=== PATIENT | female | born 1955 | race Caucasian/White ===

== ENCOUNTER 2016-09-28 13:39 | Emergency (ER) | payer OTHER ==
[~2016-09-28] VITALS: Ht 152.4 cm; Wt 89.0 kg
[~2016-09-28 13:39] MED LIST: AMLO-147 PO; ASPI-664 PO; CYCL-319 PO; ESOM40CA PO; HYDR-3498 PO; IBUP-1542 PO; LISI40TA9 PO; MELO7.5O PO; ULT50 PO
[2016-09-28 14:29] VITALS: Ht 152.4 cm; Wt 89.0 kg
--- NOTE | 2016-09-28 16:59 | ERD ---
ER Documentation Chief Complaint Date/Time DATE: 09/28/16 TIME: 16:55 Chief Complaint Pt with B flank and back pain since last night. HPI Patient is a 61-year-old [place] speaking female here with Maltese speaking daughter who presents to the ED for right back pain that radiates to the front. The pain occurred suddenly as she was sitting last night. She states that the pain is a sharp pain that comes and goes. She has not had this pain in the past. She does have a history of back pain but states that this is a different type of pain. The pain is exacerbated with movement. She denies fever, chills , nausea, vomiting or diarrhea. Her last bowel movement was yesterday. She denies history of constipation. She has passed gas today. Unsure if she has had kidney stones in the past. She denies a change in appetite. She has not taken anything for her pain. She denies chest pain, cough, shortness of breath or difficulty breathing. She denies headache or dizziness. She does have a history of hypertension and takes her medication at night. Patient denies leg pain, swelling. She denies chest pain. She denies recent travel. ROS All systems reviewed and are negative except as per history of present illness. Medications Home Meds Active Scripts Hydrocodone/Acetaminophen ([place] 5-325 Tablet) 1 Each Tablet, 1 TAB PO Q6H Y for PAIN, #7 TAB Prov:ALEJANDRA DAVIES PA-C 09/28/16 Cephalexin* (Keflex*) 500 Mg Capsule, 500 MG PO QID for 5 Days, CAP Prov:ALEJANDRA DAVIES PA-C 09/28/16 Cyclobenzaprine Hcl* (Cyclobenzaprine Hcl*) 10 Mg Tablet, 10 MG PO TID, #15 TAB Prov:MARLENY GRAFF NP 05/11/16 Ibuprofen* (Motrin*) 600 Mg Tab, 600 MG PO Q6H Y for PAIN AND OR ELEVATED TEMP, #30 TAB Prov:MARLEYN GRAFF NP 05/11/16 Hydrocodone Bit-Acetaminophen* ([place]*) 5-325 Mg Tab, 1 TAB PO Q6 Y for PAIN, # 20 TAB Prov:MARLENY GRAFF NP 05/11/16 Cyclobenzaprine Hcl* (Cyclobenzaprine Hcl*) 10 Mg Tablet, 5 MG PO TID, #20 TAB Prov:BERNARDA ANDRADE MD 09/23/15 Hydrocodone Bit-Acetaminophen* ([place]*) 5-325 Mg Tab, 1 TAB PO Q6 Y for PAIN, # 20 TAB Prov:BERNARDA ANDRADE MD 09/23/15 Ibuprofen* (Ibuprofen*) 600 Mg Tablet, 600 MG PO Q6 for PAIN, #30 TAB Prov:CADEN MONIQUE 08/06/15 Reported Medications Lisinopril* (Lisinopril*) 40 Mg Tablet, 40 MG PO DAILY, TAB 08/03/15 Meloxicam* (Meloxicam*) 7.5 Mg/5 Ml Oral.susp, 15 MG PO DAILY, ML 08/03/15 Amlodipine Besylate* (Amlodipine Besylate*) 10 Mg Tablet, 10 MG PO DAILY, TAB 08/03/15 Esomeprazole Mag Trihydrate (Nexium) 40 Mg Capsule.dr, 40 MG PO DAILY, CAP 08/03/15 Tramadol HCl (Tramadol HCl) 50 Mg Tab, 50 MG PO BID, TAB 11/27/14 Aspirin* (Aspirin* EC) 81 Mg Tablet.dr, 81 MG PO DAILY, TAB 11/27/14 Allergies Allergies: Coded Allergies: No Known Drug Allergies (Unverified Allergy, Unknown, 09/23/15) PMhx/Soc History of Surgery: Yes (cholecystectomy, gynecology surgery) Anesthesia Reaction: No Hx Neurological Disorder: No Hx Respiratory Disorders: No Hx Cardiac Disorders: Yes (HTN) Hx Psychiatric Problems: No Hx Miscellaneous Medical Probl: No Hx Alcohol Use: No Hx Substance Use: No Hx Tobacco Use: No FmHx Family History: No coronary disease, No diabetes, No other Physical Exam Vitals Vital Signs Date Time Temp Pulse Resp B/P Pulse Ox O2 Delivery O2 Flow Rate FiO2 09/28/16 18:48 68 148/78 96 09/28/16 14:29 97.9 82 18 172/78 77 Physical Exam GENERAL: Well-developed, well-nourished female. Appears in mild distress HEAD: Normocephalic, atraumatic. EYES: Pupils are equally reactive bilaterally. EOMs grossly intact. No conjunctival erythema. NECK: Supple. No lymphadenopathy or thyromegaly. No meningismus. LUNG: Clear to auscultation bilaterally. No rhonchi, wheezing, rales or coarse breath sounds. HEART: Regular rate and rhythm. No murmurs, rubs or gallops. ABDOMEN: No scars, ecchymosis or rashes noted. Soft, and nondistended. Positive bowel sounds in all four quadrants. No rebound tenderness, no guarding. (-) McBurneys point tenderness. slight right sided CVA tenderness. right sided tenderness BACK: No midline tenderness. Extremities: Equal pulses bilaterally. No peripheral clubbing, cyanosis or edema. No unilateral leg swelling. NEUROLOGIC: Alert and oriented. Moving all four extremities. 5/5 strength in all extremities. Normal speech. Steady gait. Cranial nerves II through XII intact SKIN: Normal color. Warm and dry. No rashes or lesions. Capillary refill < 2 seconds Result Diagram: 09/28/16 1705 09/28/16 1705 Results 24 hrs Laboratory Tests Test 09/28/16 17:05 Alanine Aminotransferase (ALT/SGPT) 38IU/L Albumin 4.5g/dl Albumin/Globulin Ratio 1.07 Alkaline Phosphatase 71IU/L Anion Gap 17 Aspartate Amino Transf (AST/SGOT) 30IU/L Basophils # 0.010^3/ul Basophils % 0.3% Blood Urea Nitrogen 15mg/dl Calcium Level 9.4mg/dl Carbon Dioxide Level 30mmol/L Chloride Level 104mmol/L Creatinine 0.54mg/dl Direct Bilirubin 0.00mg/dl Eosinophils # 0.110^3/ul Eosinophils % 1.2% Globulin 4.20g/dl Glucose Level 93mg/dl Hematocrit 40.9% Hemoglobin 13.7g/dl Indirect Bilirubin 0.4mg/dl Lipase 95U/L Lymphocytes # 2.110^3/ul Lymphocytes % 24.0% Mean Corpuscular Hemoglobin 29.3pg Mean Corpuscular Hemoglobin Concent 33.5g/dl Mean Corpuscular Volume 87.5fl Mean Platelet Volume 9.1fl Monocytes # 0.710^3/ul Monocytes % 7.6% Neutrophils # 6.010^3/ul Neutrophils % 66.9% Nucleated Red Blood Cells # 0.010^3/ul Nucleated Red Blood Cells % 0.0/100WBC Platelet Count 12739^3/UL Potassium Level 4.1mmol/L Red Blood Count 4.6810^6/ul Red Cell Distribution Width 13.3% Sodium Level 147mmol/L Total Bilirubin 0.4mg/dl Total Protein 8.7g/dl Urine Bilirubin NEGATIVE Urine Clarity CLEAR Urine Color LT. YELLOW Urine Glucose NEGATIVE% Urine Hemoglobin NEGATIVE Urine Ketones NEGATIVE Urine Leukocyte Esterase 1+ Urine Microscopic RBC NONE SEEN/HPF Urine Microscopic WBC 5-10/HPF Urine Nitrite NEGATIVE Urine Specific [place] 1.020 Urine Squamous Epithelial Cells RARE Urine Total Protein NEGATIVE Urine Urobilinogen 0.2 E.U./dL Urine pH 6.0 White Blood Count 8.910^3/ul Current Medications Medications (Trade) Dose Ordered Sig/Mita Route PRN Reason Start Time Stop Time Status Last Admin Dose Admin Acetaminophen/ Hydrocodone Bitart ([place] (5/325)) 1 tab ONCE ONCE PO 09/28/16 17:00 09/28/16 17:01 DC 09/28/16 17:06 Procedures/MDM ER COURSE: I kept the patient and/or family informed of laboratory and diagnostic imaging results throughout the emergency room course. EKG, MONITORS, & DIAGNOSTIC IMAGING: [place] [address] Radiology Main Line: [phone] DIAGNOSTIC IMAGING REPORT Patient: BRIAN MARKHAM : 1955 Age: 61 Sex: F [id number] DOS: 09/28/16 1643 Ordering MD: ALEJANDRA DAVIES PA-C Location: [facility] Room/Bed: PROCEDURE: CT Abdomen and Pelvis without contrast. CLINICAL INDICATION: Abdominal pain TECHNIQUE: CT scan of the abdomen and pelvis was performed on a multidetector high-resolution CT scanner without intravenous contrast. Coronal and sagittal reformatted images were obtained from the axial source images. Images were reviewed on a high-resolution PACS workstation. The total exam CTDI equals 22mGy and the total exam DLP equals 1214mGy-cm. COMPARISON: None. FINDINGS: Evaluation of the solid organs is limited given the lack of intravenous contrast administration. Bibasilar atelectasis and scarring. Right hilar calcified lymph node. Intra and extrahepatic pneumobilia may be due to prior sphincterotomy. The gallbladder is absent. The pancreas, spleen and adrenals are unremarkable. No hydronephrosis. No renal or ureteral stone. No bowel obstruction. Blind endeing tubular structure from the cecum may represent a normal-caliber appendix. No focal inflammation in the right lower quadrant. Mild inflammatory stranding at the mesenteric root. No significant retroperitoneal lymphadenopathy, ascites or evidence of pneumoperitoneum. Aortoiliac atherosclerosis. Grade II anterolisthesis of L5-S1 due to bilateral pars defects. There is severe disk space narrowing at this level with severe bilateral foraminal stenosis. IMPRESSION: No renal or ureteral stone Mild inflammatory stranding at the mesenteric root is nonspecific but can be seen with mesenteric panniculitis. Alternatively, this can also be seen with chronic infiltrative processes of the mesentery. No evidence of appendicitis or bowel obstruction. Grade II anterolisthesis of L5-S1 due to bilateral pars defects. There is severe disk space narrowing at this level with severe bilateral foraminal stenosis. Intra and extrahepatic pneumobilia may be due to prior sphincterotomy. The gallbladder is absent. RPTAT: AA .Jose Bernabe MD, MD Date Time Electronically viewed and signed by .Jose Bernabe MD, MD on 09/28/2016 18:09 .T/ CC: ALEJANDRA DAVIES PA-C [place] [address] Rad[facility] Main Line: [phone] DIAGNOSTIC IMAGING REPORT Patient: BRIAN MARKHAM : 1955 Age: 61 Sex: F MR #: [id number] DOS: 09/28/16 1643 Ordering MD: ALEJANDRA DAVIES PA-C Location: [facility] Room/Bed: PROCEDURE: XR Chest. CLINICAL INDICATION: Shortness of breath. TECHNIQUE: Single frontal view. COMPARISON: 09/23/2015. FINDINGS: There is mild right basilar atelectasis. The lungs are otherwise clear. The heart size is normal. There is no pleural effusion. There is no pneumothorax. IMPRESSION: 1. Mild right basilar atelectasis. 2. Otherwise normal chest x-ray. RPTAT: QQ .Chidi Olivera MD, Date Time Electronically viewed and signed by .Chidi Olivera MD, MD on 09/28/2016 17:27 .R/ CC: ALEJANDRA DAVIES PALesia PROCEDURES: [place]. Patient tolerated medication well with no adverse reaction. Patient seen improvement in symptoms LAB INTERPRETATION: CBC showed no evidence of systemic infection or severe anemia. CMP showed no evidence of electrolyte abnormalities, severe acidosis, alkalosis , renal failure, or liver disease. Lipase showed no evidence of acute pancreatitis. UA showed 1+ leukocytes, no hematuria. MEDICAL DECISION MAKING: I consulted with Dr. yañez regarding this patient. This is a 61-year-old female who presents with right-sided pain. Vital signs were reviewed. Patient is afebrile. Patient is not hypoxic. Patient has a UTI. Low suspicion for ovarian torsion, PID, tuboovarian abscess, ectopic , bowel obstruction , pyelonephritis, appendicitis. Low suspicion for ACS, AAA, perforated ulcer, bowel obstruction, cholecystitis, choledocholithiasis, cholangitis, pancreatitis , hepatic abscess, appendicitis, diverticulitis. She also has a history of back pain and her side pain could also be related to a musculoskeletal pain. Low suspicion for dislocation, fracture, septic joint, compartment syndrome, osteomyelitis, cellulitis, avascular necrosis, neurological injury, vascular injury, tendon laceration. However I do not think a CT scan of her back is warranted at this time. She is scheduled for surgery for her back in 2 weeks. I have low suspicion for PE or any cardiac emergency as patient is not tachycardic, blood pressure is within normal limits and she does not have leg pain or swelling. Patient has a low PERC criteria. I have low suspicion for hypertensive urgency or emergency or endorgan damage. Low suspicion for intracranial hemorrhage, meningitis, intracranial mass, concussion, temporal arteritis, stroke, elevated intracranial pressure, seizure. DISCHARGE: At this time, patient is stable for discharge and outpatient management with no new complaints during the ER course. Patient was sent home with Naomy Tomas. Patient will be discharged home with instructions to recheck for new or worsening symptoms such as fever, nausea, weakness, LOC and to follow up with primary care in the next 1-2 days. Patient was advised to return to the ER for any new or worsening symptoms. Plan was discussed and patient and/or family understands and agrees. Home instructions were given. Departure Diagnosis: Primary Impression: Back pain Back pain location: back pain in other location Chronicity: chronic Qualified Code: M54.9 - Other chronic back pain Condition: Stable Additional Instructions: Call your primary care doctor TOMORROW for an appointment during the next 1-2 days.See the doctor sooner or return here if your condition worsens before your appointment time. ALEJANDRA DAVIES PA-C Sep 28, 2016 16:59 ALEJANDRA DAVIES PA-C Sep 28, 2016 16:59
[2016-09-28] MEDS ORDERED: HYDROCODONE/APAP (5/325) TAB PO ONE (17:00)
--- NOTE | 2016-09-28 17:27 | RADRPT ---
PROCEDURE: XR Chest. CLINICAL INDICATION: Shortness of breath. TECHNIQUE: Single frontal view. COMPARISON: 09/23/2015. FINDINGS: There is mild right basilar atelectasis. The lungs are otherwise clear. The heart size is normal. There is no pleural effusion. There is no pneumothorax. IMPRESSION: 1. Mild right basilar atelectasis. 2. Otherwise normal chest x-ray. RPTAT: QQ .Chidi Olivera MD, MD Date Time Electronically viewed and signed by .Chidi Olivera MD, MD on 09/28/2016 17:27 .R/
[2016-09-28 17:37] LABS: BASOPHILS % 0.3 % (0.0-2.0); EOSINOPHILS # 0.1 10^3/ul (0.0-0.5); EOSINOPHILS % 1.2 % (0.0-7.0); HEMATOCRIT 40.9 % (37.0-47.0); HEMOGLOBIN 13.7 g/dl (12.0-16.0); LYMPHOCYTES # 2.1 10^3/ul (0.8-2.9); MEAN CORPUSCULAR HEMOGLOBIN 29.3 pg (29.0-33.0); MEAN CORPUSCULAR HGB CONC 33.5 g/dl (32.0-37.0); MEAN CORPUSCULAR VOLUME 87.5 fl (82.0-101.0); MEAN PLATELET VOLUME 9.1 fl (7.4-10.4); MONOCYTE # 0.7 10^3/ul (0.3-0.9); MONOCYTES % 7.6 % (0.0-11.0); NEUTROPHILS % 66.9 % (39.0-77.0); PLATELET COUNT 209 10^3/UL (140-440); RED BLOOD COUNT 4.68 10^6/ul (4.20-5.40); RED CELL DISTRIBUTION WIDTH 13.3 % (11.5-14.5); UNCORRECTED WBC 8.9 10^3/ul (4.8-10.8); WHITE BLOOD COUNT 8.9 10^3/ul (4.8-10.8)
[2016-09-28 17:41] LABS: CONDITION 1
[2016-09-28 17:45] LABS: ADD UMIC YES; URINE BILIRUBIN (Dip) NEGATIVE (NEGATIVE); URINE BLOOD (Dip) NEGATIVE (NEGATIVE); URINE COLOR LT. YELLOW (YELLOW); URINE GLUCOSE (Dip) NEGATIVE (NEGATIVE); URINE KETONES (Dip) NEGATIVE (NEGATIVE); URINE LEUKOCYTE ESTERASE (Dip) 1+ (NEGATIVE); URINE NITRITE (Dip) NEGATIVE (NEGATIVE); URINE TOTAL PROTEIN (Dip) NEGATIVE (NEGATIVE); URINE UROBILINOGEN (Dip) 0.2 E.U./dL (0.1-1.0)
[2016-09-28 17:46] LABS: ALBUMIN 4.5 g/dl (3.3-4.9)
[2016-09-28 17:47] LABS: POTASSIUM 4.1 mmol/L (3.5-5.1)
[2016-09-28 17:49] LABS: BILIRUBIN,INDIRECT 0.4 mg/dl (0-1.1); BILIRUBIN,TOTAL 0.4 mg/dl (0.2-1.3); CREATININE 0.54 mg/dl (0.44-1.00)
[2016-09-28 17:50] LABS: ALBUMIN/GLOBULIN RATIO 1.07; CALCIUM 9.4 mg/dl (8.4-10.2); TOTAL PROTEIN 8.7 g/dl (6.1-8.1)
[2016-09-28 18:05] LABS: SQUAMOUS EPITHELIAL CELL,UR RARE; URINE RBCS NONE SEEN /HPF (0)
--- NOTE | 2016-09-28 18:09 | RADRPT ---
PROCEDURE: CT Abdomen and Pelvis without contrast. CLINICAL INDICATION: Abdominal pain TECHNIQUE: CT scan of the abdomen and pelvis was performed on a multidetector high-resolution CT s canner without intravenous contrast. Coronal and sagittal reformatted images were obtained from the axial source images. Images were reviewed on a high-resolution PACS workstation. The total exam CTD I equals 22mGy and the total exam DLP equals 1214mGy-cm. COMPARISON: None. FINDINGS: Evaluation of the solid organs is limited given the lack of intravenous contrast administration. Bibasilar atelectasis and scarring. Right hilar calcified lymph node. Intra and extrahepatic pneumobilia may be due to prior sphincterotomy. The gallbladder is absent. The pancreas, spleen and adrenals are unremarkable. No hydronephrosis. No renal or ureteral stone. No bowel obstruction. Blind endeing tubular structure from the cecum may represent a normal-caliber appendix. No focal inflammation in the right lower quadrant. Mild inflammatory stranding at the me senteric root. No significant retroperitoneal lymphadenopathy, ascites or evidence of pneumoperitoneum. Aortoiliac atherosclerosis. Grade II anterolisthesis of L5-S1 due to bilateral pars defects. There is severe disk space narrowi ng at this level with severe bilateral foraminal stenosis. IMPRESSION: No renal or ureteral stone Mild inflammatory stranding at the mesenteric root is nonspecific but can be seen with mesenteric pa nniculitis. Alternatively, this can also be seen with chronic infiltrative processes of the mesenter y. No evidence of appendicitis or bowel obstruction. Grade II anterolisthesis of L5-S1 due to bilateral pars defects. There is severe disk space narrowi ng at this level with severe bilateral foraminal stenosis. Intra and extrahepatic pneumobilia may be due to prior sphincterotomy. The gallbladder is absent. RPTAT: AA .Jose Bernabe MD, MD Date Time Electronically viewed and signed by .Jose Bernabe MD, on 09/28/2016 18:09 .T/
[2016-09-28 18:48] VITALS: BP 148/78; PULSE 68
[2016-09-28] MEDS ORDERED: HYDR-906 PO (18:53)
[2016-09-28] MEDS ORDERED: CEPH-443 PO (18:53)
== END 2016-09-28 19:01 | disposition home or self-care (01) ==
LOC: FTE 13:39
DX: M54.9 Dorsalgia, unspecified (principal); R06.02 Shortness of breath; I10 Essential (primary) hypertension; Z79.82 Long term (current) use of aspirin
CPT/HCPCS: 71010; 74176; 80053; 81001; 83690; 85025; Z7610; 36415; 81003

== ENCOUNTER 2016-09-30 00:16 | Inpatient (IN) | payer OTHER ==
[~2016-09-30] VITALS: Ht 154.9 cm; Wt 86.7 kg
[~2016-09-30 00:16] MED LIST changes: +CEPH-443 PO; +HYDR-906 PO
[2016-09-30] MEDS ORDERED: HYDROCODONE/APAP (5/325) TAB PO ONE (01:30)
--- NOTE | 2016-09-30 04:28 | RADRPT ---
PROCEDURE: US Abdomen (right upper quadrant). CLINICAL INDICATION: Right upper quadrant abdominal pain TECHNIQUE: Multiple real-time longitudinal and transverse images of the right upper quadrant of th e abdomen were acquired utilizing a curved array transducer. Images were reviewed on a high-resoluti on PACS workstation. COMPARISON: CT abdomen and pelvis without contrast of 09/28/2016 and right upper quadrant abdomina l ultrasound of 05/12/2015 FINDINGS: The study is suboptimal due to patient body habitus. Hepatic echogenicity is within normal limits. The length of the right lobe of the liver equals 17.1 cm, within normal limits. There is normal hep atopedal flow within the main portal vein. The patient is status post cholecystectomy. The common b ile duct measures 12 mm in maximal dimension which can be seen status post cholecystectomy. Areas o f increased echogenicity are seen in the extrahepatic bile duct thought to likely correspond to pneu mobilia seen on CT. The pancreas is not seen due to bowel gas. No free fluid is identified. The right kidney measures 10.3 cm in length. There is normal echogenicity within the right kidney. There is no perinephric fluid collection. No hydronephrosis, mass, or calculus is seen. IMPRESSION: Status post cholecystectomy. Areas of increased echogenicity seen in the extrahepatic bile duct thou ght to likely correspond to pneumobilia seen on CT. This is also seen on the previous ultrasound of 05/12/2015. Pneumobilia could be secondary to previous sphincterotomy and is also seen on CT of 04/2014. Pancreas not seen. Please see above. RPTAT: HJES .Maurice Collier MD, Date Time Electronically viewed and signed by .Maurice Collier MD, MD on 09/30/2016 04:28 .S/
--- NOTE | 2016-09-30 06:09 | RADRPT ---
PROCEDURE: XR Abdomen. CLINICAL INDICATION: Abdominal pain. TECHNIQUE: 2 frontal views of the abdomen. COMPARISON: None. FINDINGS: The bowel gas pattern is unremarkable. There is no bowel obstruction or free air. There is no orga nomegaly. There is no abnormal calcification. The osseous structures are unremarkable. IMPRESSION: Unremarkable bowel gas pattern. .Jose Francisco Payne MD, MD Date Time Electronically viewed and signed by .Jose Francisco Payne MD, on 09/30/2016 06:09 .T/
--- NOTE | 2016-09-30 14:13 | RADRPT ---
PROCEDURE: MRCP. CLINICAL INDICATION: Pain. Pneumobilia. TECHNIQUE: MRCP was performed on a high field MRI scanner. Patient was examined without contrast. 3-D coronal rotating MIP images of the biliary tree are available for review. COMPARISON: Gallbladder ultrasound 09/30/2016. CT abdomen/pelvis 09/28/2016. FINDINGS: The gallbladder is surgically absent. Mild central intrahepatic biliary duct dilatation is present. The common bile duct is dilated measuring as much as 12 mm in greatest diameter. Heterogeneous si gnal intensity is seen throughout the common bile duct, some of which corresponds to pneumobilia. H owever, stones and debris may also be present. In addition, there is a open tract which connects th e proximal common bile duct and the descending portion of the duodenum compatible with a choledochod uodenal fistula. The tract measures approximately 9-10 mm in greatest diameter. Mild diffuse promin ence of the pancreatic duct is observed. The liver and spleen are homogeneous in signal intensity. The pancreas is homogeneous in signal int ensity. The adrenal glands and kidneys are unremarkable. There is no hydronephrosis or perinephric edema. The abdominal aorta is normal in caliber. There is no periaortic / retroperitoneal lymphadenopathy. There is a small hiatal hernia. The stomach is collapsed. There is no ascites. IMPRESSION: Common bile duct dilatation with heterogeneous intraluminal signal intensity, partially attributed t o pneumobilia. Stones, sludge and debris may also be present. Choledochoduodenal fistula. RPTAT: HLST .Julianne Messer MD, Date Time Electronically viewed and signed by .Julianne Messer MD, MD on 09/30/2016 14:13 .T/
[2016-09-30] MEDS ORDERED: morphine 4 MG/ML VIAL IV STA (14:40)
[2016-09-30] MEDS ORDERED: ONDANSETRON 4 MG INJ IV STA (14:40)
--- NOTE | 2016-09-30 15:12 | EN ---
Date/Time of Note Date/Time of Note DATE: 09/30/16 TIME: 15:11 ER Progress Note The patient was endorsed to me pending MRI imaging. IMPRESSION: Common bile duct dilatation with heterogeneous intraluminal signal intensity, partially attributed to pneumobilia. Stones, sludge and debris may also be present. Choledochoduodenal fistula. RPTAT: HLST Dr. Kaba has been re-paged. The patient has persistent pain. She was given morphine. There is some concern for possible choledocholithiasis. It is unclear if the patient had sphincterotomy. No evidence of ascending cholangitis. The patient will be admitted for pain control and possible ERCP. Accepting care team and consultations: I discussed the current laboratory data, diagnostic imaging and emergency care provided. Admitting team: Dr. Farrell Admitting team indication: Insurance directed Consulting services: GI, MAGO Lopez MD Sep 30, 2016 15:12
[2016-09-30 15:24] LABS: BASOPHILS % 0.4 % (0.0-2.0); EOSINOPHILS # 0.1 10^3/ul (0.0-0.5); EOSINOPHILS % 1.5 % (0.0-7.0); HEMATOCRIT 40.9 % (37.0-47.0); HEMOGLOBIN 14.1 g/dl (12.0-16.0); LYMPHOCYTES # 1.9 10^3/ul (0.8-2.9); LYMPHOCYTES % 27.6 % (15.0-51.0); MEAN CORPUSCULAR HEMOGLOBIN 29.6 pg (29.0-33.0); MEAN CORPUSCULAR HGB CONC 34.3 g/dl (32.0-37.0); MEAN CORPUSCULAR VOLUME 86.2 fl (82.0-101.0); MEAN PLATELET VOLUME 8.6 fl (7.4-10.4); MONOCYTE # 0.5 10^3/ul (0.3-0.9); MONOCYTES % 7.8 % (0.0-11.0); NEUTROPHIL # 4.3 10^3/ul (1.6-7.5); NEUTROPHILS % 62.7 % (39.0-77.0); PLATELET COUNT 224 10^3/UL (140-440); RED BLOOD COUNT 4.75 10^6/ul (4.20-5.40); RED CELL DISTRIBUTION WIDTH 13.4 % (11.5-14.5); UNCORRECTED WBC 6.8 10^3/ul (4.8-10.8); WHITE BLOOD COUNT 6.8 10^3/ul (4.8-10.8)
[2016-09-30] MEDS ORDERED: ACETAMINOPHEN 650 MG SUPP PR PRN (15:30)
[2016-09-30] MEDS ORDERED: NACL 0.9% 3 ML SYG IV SCH (15:30)
[2016-09-30] MEDS ORDERED: ONDANSETRON 4 MG INJ IV PRN ×2 (15:30)
[2016-09-30] MEDS ORDERED: BISACODYL 10 MG SUPP PR PRN (15:30)
[2016-09-30] MEDS ORDERED: DOCUSATE SODIUM 100 MG CAP PO PRN (15:30)
[2016-09-30] MEDS ORDERED: HYDROCODONE/APAP (5/325) TAB PO PRN ×2 (15:30)
[2016-09-30] MEDS ORDERED: ACETAMINOPHEN 325 MG TAB PO PRN ×2 (15:30)
[2016-09-30] MEDS ORDERED: morphine 2 MG INJ IV PRN (15:30)
[2016-09-30] MEDS ORDERED: MAGNESIUM HYDROXIDE 30ML CUP PO PRN (15:30)
[2016-09-30 15:31] LABS: CONDITION 1
[2016-09-30 15:32] LABS: ALBUMIN 4.5 g/dl (3.3-4.9); POTASSIUM 4.4 mmol/L (3.5-5.1)
[2016-09-30 15:34] LABS: BILIRUBIN,INDIRECT 0.8 mg/dl (0-1.1); BILIRUBIN,TOTAL 0.8 mg/dl (0.2-1.3); CREATININE 0.53 mg/dl (0.44-1.00); INR 1.03; PROTIME 13.5 Sec (12.2-14.2); PT RATIO 1.1
[2016-09-30 15:35] LABS: ALBUMIN/GLOBULIN RATIO 1.02; CALCIUM 9.7 mg/dl (8.4-10.2); PARTIAL THROMBOPLASTIN TIME 29.8 Sec (25.0-35.0); TOTAL PROTEIN 8.9 g/dl (6.1-8.1)
[2016-09-30] MEDS: SOD CHLORIDE 0.9% 1,000 ML IV SCH (16:21)
[2016-09-30 17:08] VITALS: TEMP 98.6
[2016-09-30 17:32] VITALS: BP 176/81; RESP 18
[2016-09-30 17:42] VITALS: Ht 154.9 cm; Wt 86.7 kg
--- NOTE | 2016-09-30 18:07 | HP ---
DATE OF ADMISSION: 09/30/2016 CHIEF COMPLAINT: Abdominal pain. HISTORY OF PRESENT ILLNESS: This is a 61-year-old female with past medical history of hypertension, spondylosis, arthritis, history of cardiac arrhythmia, symptomatic multinodular goiter, obesity, GE RD, who came to [facility] due to reports of right upper quadrant abdominal pain. According to the patient, she had been having pain in her right upper abdomen for 3 days. She did state she initially went to [facility] 3 days ago and was told that she had a UTI and was sent home on oral antibiotic. She did report that her pain got worse since she got home and as such subsequently went to [facility] today for further evaluation. Upon exami nation, she did have abdominal ultrasound to check gallbladder that did show status post cholecystec humberto and also there is increased echogenicity seen in the extrahepatic bile duct likely correspond t o pneumobilia. She did have further CT of the abdomen for further delineation which did show common bile duct dilation with heterogenous intraluminal signal intensity partially attributed to pneumobi denis as well as stones and sludge and debris suspect to be present. 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 The patient with no leukocytosis. She did remain afebrile. She did report having s ome shortness of breath associated with her pain whenever it would start to sharpen. She denied any chest pain or shortness of breath or nausea, vomiting, or any change in her bowel movements. She d enied any kind of fevers or recent sick contacts. We will evaluate her for the aforementioned issue s. MEDICAL AND SURGICAL HISTORY: 1. Essential hypertension. 2. Diabetes. 3. Multinodular goiter. 4. Spondylosis. 5. Obesity. FAMILY HISTORY: Noncontributory. SOCIAL HISTORY: The patient denies any illicit drug use, cigarette smoking or alcohol consumption. ALLERGIES: NO KNOWN ALLERGIES. REVIEW OF SYSTEMS: A 12-point review of systems obtained and entirely negative except that mentione d in the history of present illness. PHYSICAL EXAMINATION: VITAL SIGNS: Temperature is 98.1, pulse is 76, respiratory rate 18, blood pressure is 185/88 and pu lse ox is 97% on room air. GENERAL: This is a 61-year-old female, appears stated age. Denies any reports of pain at this time . EYES: Pupils equal, round and reactive to light. Anicteric sclerae. NECK: Supple, nontender. No JVD. CARDIOVASCULAR: S1, S2 auscultated, regular rate. PULMONARY: Clear to auscultation bilaterally, no wheezing or rhonchi. ABDOMEN: Soft, nontender at this time. Bowel sounds active. EXTREMITIES: There is noted edema of bilateral lower extremities +1. SKIN: Warm, dry and intact. NEUROLOGIC: Alert and oriented x3. LABORATORY DATA: WBC 6.8, hemoglobin is 14.1, hematocrit 40.9 and platelets are 224. Sodium is 144 , potassium 4.4, BUN is 14, creatinine is 0.53. IMAGIN. Gallbladder ultrasound done on 09/30/2016 did show status post cholecystectomy and areas of incr eased echogenicity seen in extrahepatic bile duct, thought to be likely to correspond to pneumobilia . 2. MRCP done on 09/30/2016 did show common bile duct dilation with heterogeneous intraluminal signa l intensity, partially attributed to pneumobilia. Stones, sludge and debris may also be present. T here was also seen choledochoduodenal fistula. IMPRESSION AND PLAN: 1. Abdominal pain, likely secondary to CBD dilation from pneumobilia and possible stones with rhona dochoduodenal fistula. We will get inside sales account executive to follow. We will continue on IV hydration. We will provide analgesics as needed. Of note, patient with no reported abdominal pain at this ti me. No transaminitis seen. We will follow up. 2. Accelerated hypertension. We will provide antihypertensives and adjust as needed. 3. Obesity. Weight reduction is advised. 4. Spondylosis. Patient reported to be planned for surgery on 10/11/2016 at [facility] by her outside surgeon. We will provide with analgesics as needed. 5. History of symptomatic multinodular goiter status post total thyroidectomy. The patient with no active issues at this time. We will continue to monitor. 7. GERD. We will provide with PPI. ADMISSION PROCESS TIME: 40 minutes. Discussed plan of care with Dr. Blanco. Dictated By: CLAIRE LINO ASSOCIATE PROGRAMMER for MINDA BLANCO MD RR/NTS Conf#: [id number] DID#: [id number]
[2016-09-30 19:44] VITALS: BP 177/80; RESP 19
[2016-09-30] MEDS ORDERED: hydrALAzine 20 MG INJ IV PRN (20:30)
[2016-09-30 21:00] VITALS: BP 155/74; PULSE 71
[2016-09-30] MEDS: AMLODIPINE 10 MG TAB PO SCH (21:00)
[2016-09-30] MEDS: traMADol 50 MG TAB PO SCH ×2 (21:00→21:01)
[2016-09-30] MEDS: LISINOPRIL 20 MG TAB PO SCH (21:00)
[2016-09-30 22:30] VITALS: BP 144/67; PULSE 66
[2016-10-01] MEDS: SOD CHLORIDE 0.9% 1,000 ML IV SCH ×3 (03:51→16:25)
[2016-10-01] MEDS: PANTOPRAZOLE 40 MG INJ IV SCH (06:00)
[2016-10-01] MEDS ORDERED: PANTOPRAZOLE (EC) 40 MG TAB PO SCH (06:00)
[2016-10-01 06:57] LABS: ALBUMIN 3.8 g/dl (3.3-4.9)
[2016-10-01 07:00] LABS: BILIRUBIN,INDIRECT 0.8 mg/dl (0-1.1); BILIRUBIN,TOTAL 0.8 mg/dl (0.2-1.3); CREATININE 0.52 mg/dl (0.44-1.00); TOTAL PROTEIN 7.6 g/dl (6.1-8.1)
[2016-10-01 07:01] LABS: CALCIUM 8.9 mg/dl (8.4-10.2); MAGNESIUM 1.9 mg/dl (1.7-2.5); PHOSPHORUS 4.5 mg/dl (2.5-4.9)
[2016-10-01 07:02] LABS: CHOL/HDL RATIO 4.1 RATIO
[2016-10-01 07:05] LABS: T3 UPTAKE 31.3 % (23.5-40.5)
[2016-10-01 07:33] LABS: THYROID STIMULATING HORMONE 3.41 MIU/L (0.465-4.680)
[2016-10-01 07:49] VITALS: BP 117/60; RESP 16
[2016-10-01] MEDS: traMADol 50 MG TAB PO SCH ×2 (09:00→21:16)
[2016-10-01] MEDS ORDERED: LISINOPRIL 20 MG TAB PO SCH (09:00)
[2016-10-01] MEDS: LISINOPRIL 20 MG TAB PO SCH (09:00)
[2016-10-01] MEDS: AMLODIPINE 10 MG TAB PO SCH (09:00)
[2016-10-01] MEDS ORDERED: AMLODIPINE 10 MG TAB PO SCH (09:00)
[2016-10-01] MEDS: ASPIRIN (EC) 81 MG TAB PO SCH (09:10)
--- NOTE | 2016-10-01 10:37 | CONS ---
Date/Time of Note Date/Time of Note DATE: 10/01/16 TIME: 10:35 Assessment/Plan Assessment/Plan Additional Assessment/Plan Abdominal pain * MRCP notes: * Common bile duct dilatation with heterogeneous intraluminal signal intensity , partially attributed to pneumobilia. Stones, sludge and debris may also be present. * Choledochoduodenal fistula. * ERCP on Monday, patient advised of R/B/A of procedure and is agreeable to proceed via [place] router operator pin * Cardiac clearance for ERCP * Trend labs * IVF hydration * Okay to start clears * Further recommendations depend on clinical course Consultation Date/Type/Reason Admit Date/Time Sep 30, 2016 at 15:10 Type of Consultation: Gastroenterology Reason for Consultation Abdominal pain/abnormal finding on MRCP Hx of Present Illness 61-year-old female with PMH of hypertension, spondylosis, arthritis, history of cardiac arrhythmia, symptomatic multinodular goiter, obesity, GERD, and cholecystectomy 40 years ago, presented to the ED 4 days ago with complaints of intense abdominal right upper quadrant pain. Patient stated that symptoms began abruptly and worsen throughout the day. Patient denies nausea, vomiting, diarrhea, sick contacts, travel outside the [place], tobacco abuse, EtOH abuse, and previous of previous episode. Patient reports cholecystectomy 40 years ago and thyroidectomy July 2015. MRCP indicates: 1. Common bile duct dilatation with heterogeneous intraluminal signal intensity, partially attributed to pneumobilia. Stones, sludge and debris may also be present. 2. Choledochoduodenal fistula. Recommend ERCP, and patient is agreeable to proceed. Advised patient of risks/benefits/alternatives of procedure via [place] router operator pin. Social History Smoking Status: Never smoker Exam/Review of Systems Vital Signs Vitals Vital Signs Date Time Temp Pulse Resp B/P Pulse Ox O2 Delivery O2 Flow Rate FiO2 10/01/16 07:49 98.1 67 16 117/60 91 09/30/16 18:00 Nasal Cannula 2.0 Intake and Output 09/30/16 09/30/16 10/01/16 15:00 23:00 07:00 Intake Total 160 ml 840 ml Output Total 650 ml Balance 160 ml 190 ml Exam Constitutional: alert, obese, oriented, well developed Psych: nl mood/affect Head: atraumatic, normocephalic Eyes: EOMI, nl conjunctiva, nl lids, nl sclera ENMT: nl external ears & nose, nl lips & teeth, nl nasal mucosa & septum Neck: non-tender Respiratory: normal air movement Cardiovascular: regular rate and rhythm Gastrointestinal: soft, tender (Right upper quadrant) Neurological: FOREIGN EXCHANGE DEALER II-XII intact Results Result Diagram: 09/30/16 1510 10/01/16 0455 Results 24 hrs Laboratory Tests Test 09/30/16 15:10 10/01/16 04:55 Activated Partial Thromboplast Time 29.8 Alanine Aminotransferase (ALT/SGPT) 42 40 Albumin 4.5 3.8 Albumin/Globulin Ratio 1.02 1.00 Alkaline Phosphatase 70 57 Anion Gap 17 H 18 H Aspartate Amino Transf (AST/SGOT) 30 34 Basophils # 0.0 Basophils % 0.4 Blood Urea Nitrogen 14 14 Calcium Level 9.7 8.9 Carbon Dioxide Level 29 26 Chloride Level 102 103 Creatinine 0.53 0.52 Direct Bilirubin 0.00 0.00 Eosinophils # 0.1 Eosinophils % 1.5 Globulin 4.40 H 3.80 H Glucose Level 95 106 Hematocrit 40.9 Hemoglobin 14.1 INR International Normalized Ratio 1.03 Indirect Bilirubin 0.8 0.8 Lipase 69 Lymphocytes # 1.9 Lymphocytes % 27.6 Mean Corpuscular Hemoglobin 29.6 Mean Corpuscular Hemoglobin Concent 34.3 Mean Corpuscular Volume 86.2 Mean Platelet Volume 8.6 Monocytes # 0.5 Monocytes % 7.8 Neutrophils # 4.3 Neutrophils % 62.7 Nucleated Red Blood Cells # 0.0 Nucleated Red Blood Cells % 0.0 Platelet Count 224 Potassium Level 4.4 4.0 Prothrombin Time 13.5 Prothrombin Time Ratio 1.1 Red Blood Count 4.75 Red Cell Distribution Width 13.4 Sodium Level 144 143 Total Bilirubin 0.8 0.8 Total Protein 8.9 H 7.6 # White Blood Count 6.8 # Cholesterol Level 152 Cholesterol/HDL Ratio 4.1 Free Thyroxine Index 3.26 HDL Cholesterol 37 Hemoglobin A1c 5.6 LDL Cholesterol, Calculated 102 Magnesium Level 1.9 Phosphorus Level 4.5 Thyroid Stimulating Hormone (TSH) 3.410 Thyroxine (T4) 10.4 Triglycerides Level 66 Triiodothyronine (T3) Uptake 31.3 Medications Medications Current Medications Aspirin (Halfprin) 81 mg DAILY PO Last administered on 10/01/16t 09:10; Admin Dose 81 MG; Start 10/01/16 at 09:00 Tramadol HCl 50 mg 50 mg BID PO ; Start 09/30/16 at 21:00 Sodium Chloride (NS) 1,000 ml @ 80 mls/hr [id number] IV Last administered on 06:00; Admin Dose 80 MLS/HR; Start 09/30/16 at 15:21 Ondansetron HCl (Zofran Inj) 4 mg Q6H PRN IV NAUSEA AND/OR VOMITING; Start 09/30 at 15:30 Acetaminophen (Tylenol Tab) 650 mg Q6H PRN PO PAIN LEVEL 1-3 OR FEVER; Start at 15:30 Acetaminophen (Tylenol Supp) 650 mg Q6H PRN [place] PAIN LEVEL 1-3 OR FEVER; Start 09/30/16 at 15:30 Acetaminophen/ Hydrocodone Bitart ([place] (5/325)) 1 tab Q6H PRN PO MODERATE PAIN LEVEL 4-6; Start 09/30/16 at 15:30 Acetaminophen/ Hydrocodone Bitart ([place] (5/325)) 2 tab Q6H PRN PO SEVERE PAIN LEVEL 7-10; Start 09/30/16 at 15:30 Morphine Sulfate (morphine) 2 mg Q4H PRN IV SEVERE PAIN LEVEL 7-10; Start at 15:30 Docusate Sodium (Colace) 100 mg Q12H PRN PO CONSTIPATION; Start 09/30/16 at 15: 30 Magnesium Hydroxide (Milk Of Mag) 30 ml DAILY PRN PO CONSTIPATION; Start at 15:30 Bisacodyl (Dulcolax Supp) 10 mg DAILY PRN [place] CONSTIPATION; Start 09/30/16 at 15: 30 Pantoprazole (Protonix Iv) 40 mg DAILY@06 IV Last administered on 10/01/16 06: 00; Admin Dose 40 MG; Start 10/01/16 at 06:00 Amlodipine Besylate (Norvasc) 10 mg DAILY PO Last administered on 09/30/16 21: 00; Admin Dose 10 MG; Start 09/30/16 at 20:30 Lisinopril (Zestril) 40 mg DAILY PO Last administered on 09/30/16 21:00; Admin Dose 40 MG; Start 09/30/16 at 20:30 Hydralazine HCl (Apresoline) 10 mg Q4H PRN IV SBP>170; Start 09/30/16 at 20:30 Indomethacin (Indocin Supp) 100 mg ONCE ONCE [place] ; Start 10/03/16 at 10:30; Stop 10/03/16 at 10:31; Status UNV JULIO CESAR DIA MD Oct 01, 2016 10:37 JULIO CESAR DIA MD Oct 01, 2016 10:37
--- NOTE | 2016-10-01 15:31 | PN ---
Date/Time of Note Date/Time of Note DATE: 10/01/16 TIME: 15:25 Assessment/Plan Lines/Catheters IV Catheter Type (from [facility]): Peripheral IV Urinary Cath still in place: No Assessment/Plan Chief Complaint/Hosp Course Assessment and Plan: 1. 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 Desk Interviewer following. Tentative plan for ERCP.. We will continue on IV hydration. We will provide analgesics as needed. 2. Accelerated hypertension. We will provide antihypertensives and adjust as needed. 3. Obesity. Weight reduction is advised. 4. Spondylosis. Patient reported to be planned for surgery on 10/11/2016 at [facility] by her outside surgeon. We will provide with analgesics as needed. 5. History of symptomatic multinodular goiter status post total thyroidectomy. The patient with no active issues at this time. We will continue to monitor. GERD. We will provide with PPI. Disposition and plan: We'll get cardiology clearance prior to ERCP on 2016. We'll follow-up Discussed plan of care with Dr. Blanco Problems: Subjective 24 Hr Interval Summary Free Text/Dictation only reports little pain on right upper abd quadrant Exam/Review of Systems Vital Signs Vitals Vital Signs Date Time Temp Pulse Resp B/P Pulse Ox O2 Delivery O2 Flow Rate FiO2 10/01/16 08:00 Nasal Cannula 2.0 10/01/16 07:49 98.1 67 16 117/60 91 Intake and Output 09/30/16 09/30/16 10/01/16 15:00 23:00 07:00 Intake Total 160 ml 840 ml Output Total 650 ml Balance 160 ml 190 ml Exam General: No acute signs or symptoms of distress Eyes: pupils equal round, Anicteric sclera Neck: Supple nontender, no JVD Cardiac: S1, S2 auscultated, regular rhythm and rate Pulmonary: No coarse rhonchi or breathing auscultated GI: Minimally tender on palpation of right upper quadrant Extremities: Minimal edema bilateral lower extremities +1 Skin: Clean dry and intact Neurologic: Alert to person place and time and situation Results Result Diagram: 09/30/16 1510 10/01/16 2840 Results 24 hrs Laboratory Tests Test 10/01/16 04:55 Alanine Aminotransferase (ALT/SGPT) 40 Albumin 3.8 Albumin/Globulin Ratio 1.00 Alkaline Phosphatase 57 Anion Gap 18 H Aspartate Amino Transf (AST/SGOT) 34 Blood Urea Nitrogen 14 Calcium Level 8.9 Carbon Dioxide Level 26 Chloride Level 103 Cholesterol Level 152 Cholesterol/HDL Ratio 4.1 Creatinine 0.52 Direct Bilirubin 0.00 Free Thyroxine Index 3.26 Globulin 3.80 H Glucose Level 106 HDL Cholesterol 37 Hemoglobin A1c 5.6 Indirect Bilirubin 0.8 LDL Cholesterol, Calculated 102 Magnesium Level 1.9 Phosphorus Level 4.5 Potassium Level 4.0 Sodium Level 143 Thyroid Stimulating Hormone (TSH) 3.410 Thyroxine (T4) 10.4 Total Bilirubin 0.8 Total Protein 7.6 # Triglycerides Level 66 Triiodothyronine (T3) Uptake 31.3 Medications Medications Current Medications Aspirin (Halfprin) 81 mg DAILY PO Last administered on 10/01/16 09:10; Admin Dose 81 MG; Start 10/01/16 at 09:00 Tramadol HCl 50 mg 50 mg BID PO ; Start 09/30/16 at 21:00 Sodium Chloride (NS) 1,000 ml @ 80 mls/hr [id number] IV Last administered on 06:00; Admin Dose 80 MLS/HR; Start 09/30/16 at 15:21 Ondansetron HCl (Zofran Inj) 4 mg Q6H PRN IV NAUSEA AND/OR VOMITING; Start 09/30 at 15:30 Acetaminophen (Tylenol Tab) 650 mg Q6H PRN PO PAIN LEVEL 1-3 OR FEVER; Start at 15:30 Acetaminophen (Tylenol Supp) 650 mg Q6H PRN [place] PAIN LEVEL 1-3 OR FEVER; Start 09/30/16 at 15:30 Acetaminophen/ Hydrocodone Bitart ([place] (5/325)) 1 tab Q6H PRN PO MODERATE PAIN LEVEL 4-6; Start 09/30/16 at 15:30 Acetaminophen/ Hydrocodone Bitart ([place] (5/325)) 2 tab Q6H PRN PO SEVERE PAIN LEVEL 7-10; Start 09/30/16 at 15:30 Morphine Sulfate (morphine) 2 mg Q4H PRN IV SEVERE PAIN LEVEL 7-10; Start at 15:30 Docusate Sodium (Colace) 100 mg Q12H PRN PO CONSTIPATION; Start 09/30/16 at 15: 30 Magnesium Hydroxide (Milk Of Mag) 30 ml DAILY PRN PO CONSTIPATION; Start at 15:30 Bisacodyl (Dulcolax Supp) 10 mg DAILY PRN [place] CONSTIPATION; Start 09/30/16 at 15: 30 Pantoprazole (Protonix Iv) 40 mg DAILY@06 IV Last administered on 10/01/16 06: 00; Admin Dose 40 MG; Start 10/01/16 at 06:00 Amlodipine Besylate (Norvasc) 10 mg DAILY PO Last administered on 09/30/16 21: 00; Admin Dose 10 MG; Start 09/30/16 at 20:30 Lisinopril (Zestril) 40 mg DAILY PO Last administered on 09/30/16 21:00; Admin Dose 40 MG; Start 09/30/16 at 20:30 Hydralazine HCl (Apresoline) 10 mg Q4H PRN IV SBP>170; Start 09/30/16 at 20:30 Indomethacin (Indocin Supp) 100 mg ONCE ONCE [place] ; Start 10/03/16 at 10:30; Stop 10/03/16 at 10:31 CLAIRE LINO Oct 01, 2016 15:31
[2016-10-01 20:25] VITALS: BP 139/62; RESP 18
[2016-10-02] MEDS: SOD CHLORIDE 0.9% 1,000 ML IV SCH ×3 (04:51→22:15)
[2016-10-02 05:51] LABS: POTASSIUM 3.7 mmol/L (3.5-5.1)
[2016-10-02 05:52] LABS: BASOPHILS % 0.5 % (0.0-2.0); EOSINOPHILS # 0.1 10^3/ul (0.0-0.5); EOSINOPHILS % 1.9 % (0.0-7.0); HEMOGLOBIN 12.5 g/dl (12.0-16.0); LYMPHOCYTES # 2.1 10^3/ul (0.8-2.9); LYMPHOCYTES % 40.1 % (15.0-51.0); MEAN CORPUSCULAR HEMOGLOBIN 29.7 pg (29.0-33.0); MEAN CORPUSCULAR HGB CONC 34.7 g/dl (32.0-37.0); MEAN CORPUSCULAR VOLUME 85.5 fl (82.0-101.0); MEAN PLATELET VOLUME 8.8 fl (7.4-10.4); MONOCYTE # 0.4 10^3/ul (0.3-0.9); MONOCYTES % 8.3 % (0.0-11.0); NEUTROPHIL # 2.5 10^3/ul (1.6-7.5); NEUTROPHILS % 49.2 % (39.0-77.0); PLATELET COUNT 205 10^3/UL (140-440); RED BLOOD COUNT 4.21 10^6/ul (4.20-5.40); RED CELL DISTRIBUTION WIDTH 13.1 % (11.5-14.5); UNCORRECTED WBC 5.2 10^3/ul (4.8-10.8); WHITE BLOOD COUNT 5.2 10^3/ul (4.8-10.8)
[2016-10-02 05:54] LABS: CREATININE 0.52 mg/dl (0.44-1.00)
[2016-10-02 05:55] LABS: CALCIUM 8.8 mg/dl (8.4-10.2)
[2016-10-02 06:09] LABS: CONDITION 1
[2016-10-02] MEDS: PANTOPRAZOLE 40 MG INJ IV SCH (06:13)
[2016-10-02 07:53] VITALS: BP 123/58; RESP 16
--- NOTE | 2016-10-02 08:04 | CONS ---
Date/Time of Note Date/Time of Note DATE: 10/02/16 TIME: 08:01 Assessment/Plan Assessment/Plan Additional Assessment/Plan * MRCP notes: * Common bile duct dilatation with heterogeneous intraluminal signal intensity , partially attributed to pneumobilia. Stones, sludge and debris may also be present. * Choledochoduodenal fistula. * ERCP on Monday, patient advised of R/B/A of procedure and is agreeable to proceed via Thai reliability technicians * Cardiac clearance for ERCP * Trend labs * IVF hydration * Okay to start clears * Further recommendations depend on clinical course * Patient seen in collaboration with Dr. Kaab Consultation Date/Type/Reason Admit Date/Time Sep 30, 2016 at 15:10 Initial Consult Date Type of Consultation: Gastroenterology 24 HR Interval Summary Free Text/Dictation Tolerating clears ERCP planned tomorrow Awaiting cardiac clearance for procedure Exam/Review of Systems Vital Signs Vitals Vital Signs Date Time Temp Pulse Resp B/P Pulse Ox O2 Delivery O2 Flow Rate FiO2 10/02/16 07:53 98.4 57 16 123/58 94 10/01/16 08:00 Nasal Cannula 2.0 Intake and Output 10/01/16 10/01/16 10/02/16 15:00 23:00 07:00 Intake Total 1680 ml 930 ml Output Total 400 ml 600 ml Balance 1280 ml 330 ml Exam Constitutional: alert, obese, oriented, well developed Psych: nl mood/affect Head: atraumatic, normocephalic Eyes: EOMI, nl conjunctiva, nl lids, nl sclera ENMT: nl external ears & nose, nl lips & teeth, nl nasal mucosa & septum Neck: non-tender Respiratory: normal air movement Cardiovascular: regular rate and rhythm Gastrointestinal: soft, tender (Right upper quadrant) Neurological: ACID PATROLLER II-XII intact Results Result Diagram: 10/02/16 0435 10/02/16 0435 Results 24 hrs Laboratory Tests Test 10/02/16 04:35 Anion Gap 14 Basophils # 0.0 Basophils % 0.5 Blood Urea Nitrogen 13 Calcium Level 8.8 Carbon Dioxide Level 29 Chloride Level 104 Creatinine 0.52 Eosinophils # 0.1 Eosinophils % 1.9 Glucose Level 86 Hematocrit 36.0 L Hemoglobin 12.5 Lymphocytes # 2.1 Lymphocytes % 40.1 Mean Corpuscular Hemoglobin 29.7 Mean Corpuscular Hemoglobin Concent 34.7 Mean Corpuscular Volume 85.5 Mean Platelet Volume 8.8 Monocytes # 0.4 Monocytes % 8.3 Neutrophils # 2.5 Neutrophils % 49.2 Nucleated Red Blood Cells # 0.0 Nucleated Red Blood Cells % 0.0 Platelet Count 205 Potassium Level 3.7 Red Blood Count 4.21 Red Cell Distribution Width 13.1 Sodium Level 143 White Blood Count 5.2 # Medications Medications Current Medications Aspirin (Halfprin) 81 mg DAILY PO Last administered on 10/01/16 09:10; Admin Dose 81 MG; Start 10/01/16 at 09:00 Tramadol HCl 50 mg 50 mg BID PO Last administered on 10/01/16 21:16; Admin Dose 50 MG; Start 09/30/16 at 21:00 Sodium Chloride (NS) 1,000 ml @ 80 mls/hr [id number] IV Last administered on 04:51; Admin Dose 80 MLS/HR; Start 09/30/16 at 15:21 Ondansetron HCl (Zofran Inj) 4 mg Q6H PRN IV NAUSEA AND/OR VOMITING; Start 09/30 at 15:30 Acetaminophen (Tylenol Tab) 650 mg Q6H PRN PO PAIN LEVEL 1-3 OR FEVER; Start at 15:30 Acetaminophen (Tylenol Supp) 650 mg Q6H PRN [place] PAIN LEVEL 1-3 OR FEVER; Start 09/30/16 at 15:30 Acetaminophen/ Hydrocodone Bitart ([place] (5/325)) 1 tab Q6H PRN PO MODERATE PAIN LEVEL 4-6; Start 09/30/16 at 15:30 Acetaminophen/ Hydrocodone Bitart ([place] (5/325)) 2 tab Q6H PRN PO SEVERE PAIN LEVEL 7-10; Start 09/30/16 at 15:30 Morphine Sulfate (morphine) 2 mg Q4H PRN IV SEVERE PAIN LEVEL 7-10; Start at 15:30 Docusate Sodium (Colace) 100 mg Q12H PRN PO CONSTIPATION; Start 09/30/16 at 15: 30 Magnesium Hydroxide (Milk Of Mag) 30 ml DAILY PRN PO CONSTIPATION; Start at 15:30 Bisacodyl (Dulcolax Supp) 10 mg DAILY PRN [place] CONSTIPATION; Start 09/30/16 at 15: 30 Pantoprazole (Protonix Iv) 40 mg DAILY@06 IV Last administered on 10/02/16 06: 13; Admin Dose 40 MG; Start 10/01/16 at 06:00 Amlodipine Besylate (Norvasc) 10 mg DAILY PO Last administered on 09/30/16 21: 00; Admin Dose 10 MG; Start 09/30/16 at 20:30 Lisinopril (Zestril) 40 mg DAILY PO Last administered on 09/30/16 21:00; Admin Dose 40 MG; Start 09/30/16 at 20:30 Hydralazine HCl (Apresoline) 10 mg Q4H PRN IV SBP>170; Start 09/30/16 at 20:30 Indomethacin (Indocin Supp) 100 mg ONCE ONCE IN ; Start 10/03/16 at 10:30; Stop 10/03/16 at 10:31 LISA GARCIA Oct 02, 2016 08:04
[2016-10-02] MEDS: ASPIRIN (EC) 81 MG TAB PO SCH (08:50)
[2016-10-02] MEDS: AMLODIPINE 10 MG TAB PO SCH (08:51)
[2016-10-02] MEDS: LISINOPRIL 20 MG TAB PO SCH (08:51)
[2016-10-02] MEDS: traMADol 50 MG TAB PO SCH ×2 (08:53→20:29)
--- NOTE | 2016-10-02 11:30 | CONS ---
Date/Time of Note Date/Time of Note DATE: 10/02/16 TIME: 11:21 Assessment/Plan Assessment/Plan Chief Complaint/Hosp Course Pre-operative evaluation: The patient is to undergo a low risk procedure. She does not have cardiac related symptoms and had a stress test and echo a year ago which were normal. No further testing is indicated. Can proceed with ERCP as planned. RUQ pain: ERCP tomorrow DM HTN HL -proceed with ERCP -no further testing -will follow as needed Problems: Consultation Date/Type/Reason Admit Date/Time Sep 30, 2016 at 15:10 Date of Consultation: Oct 02, 2016 Type of Consultation: Cardiology Reason for Consultation Pre-procedure evaluation. Referring Provider: CLAIRE LINO of Present Illness 61 yo F with a h/o DM, HTN, HL, cholecystectomy 40 yrs ago, who presented with RUQ pain. As MRCP showed some abnormalities the plan is for ERCP tomorrow. The patient notes that she only has RUQ pain which is now better. No chest pain with activity, no SOB, orthopnea, PND, edema. She notes that she had a full cardiac eval one year ago including a negative stress test. No h/o LA. per HPI Psychological: nl mood/affect Social History Smoking Status: Never smoker Exam/Review of Systems Vital Signs Vitals Vital Signs Date Time Temp Pulse Resp B/P Pulse Ox O2 Delivery O2 Flow Rate FiO2 10/02/16 07:53 98.4 57 16 123/58 94 10/01/16 08:00 Nasal Cannula 2.0 Intake and Output 10/01/16 10/01/16 10/02/16 14:59 22:59 06:59 Intake Total 1680 ml 930 ml Output Total 400 ml 600 ml Balance 1280 ml 330 ml Exam Constitutional: alert, oriented Psych: no complaints Head: atraumatic, normocephalic Neck: No jvd Respiratory: clear to auscultation, No crackles/rales Cardiovascular: regular rate and rhythm, No systolic murmur Gastrointestinal: non-tender, soft Extremities: normal pulses Neurological: nl mental status, nl speech Skin: No rash or lesions Results Result Diagram: 10/02/16 0435 10/02/16 0435 Results 24 hrs Laboratory Tests Test 10/02/16 04:35 Anion Gap 14 Basophils # 0.0 Basophils % 0.5 Blood Urea Nitrogen 13 CA 19-9 Antigen 5.0 Calcium Level 8.8 Carbon Dioxide Level 29 Chloride Level 104 Creatinine 0.52 Direct Bilirubin 0.00 Eosinophils # 0.1 Eosinophils % 1.9 Glucose Level 86 Hematocrit 36.0 L Hemoglobin 12.5 Lipase 95 Lymphocytes # 2.1 Lymphocytes % 40.1 Mean Corpuscular Hemoglobin 29.7 Mean Corpuscular Hemoglobin Concent 34.7 Mean Corpuscular Volume 85.5 Mean Platelet Volume 8.8 Monocytes # 0.4 Monocytes % 8.3 Neutrophils # 2.5 Neutrophils % 49.2 Nucleated Red Blood Cells # 0.0 Nucleated Red Blood Cells % 0.0 Platelet Count 205 Potassium Level 3.7 Red Blood Count 4.21 Red Cell Distribution Width 13.1 Sodium Level 143 Total Bilirubin 0.0 L White Blood Count 5.2 # Medications Medications Current Medications Aspirin (Halfprin) 81 mg DAILY PO Last administered on 10/02/16 08:50; Admin Dose 81 MG; Start 10/01/16 at 09:00 Tramadol HCl 50 mg 50 mg BID PO Last administered on 10/02/16 08:53; Admin Dose 50 MG; Start 09/30/16 at 21:00 Sodium Chloride (NS) 1,000 ml @ 80 mls/hr [id number] IV Last administered on 04:51; Admin Dose 80 MLS/HR; Start 09/30/16 at 15:21 Ondansetron HCl (Zofran Inj) 4 mg Q6H PRN IV NAUSEA AND/OR VOMITING; Start 09/30 at 15:30 Acetaminophen (Tylenol Tab) 650 mg Q6H PRN PO PAIN LEVEL 1-3 OR FEVER; Start at 15:30 Acetaminophen (Tylenol Supp) 650 mg Q6H PRN [place] PAIN LEVEL 1-3 OR FEVER; Start 09/30/16 at 15:30 Acetaminophen/ Hydrocodone Bitart ([place] (5/325)) 1 tab Q6H PRN PO MODERATE PAIN LEVEL 4-6; Start 09/30/16 at 15:30 Acetaminophen/ Hydrocodone Bitart ([place] (5/325)) 2 tab Q6H PRN PO SEVERE PAIN LEVEL 7-10; Start 09/30/16 at 15:30 Morphine Sulfate (morphine) 2 mg Q4H PRN IV SEVERE PAIN LEVEL 7-10; Start at 15:30 Docusate Sodium (Colace) 100 mg Q12H PRN PO CONSTIPATION; Start 09/30/16 at 15: 30 Magnesium Hydroxide (Milk Of Mag) 30 ml DAILY PRN PO CONSTIPATION; Start at 15:30 Bisacodyl (Dulcolax Supp) 10 mg DAILY PRN [place] CONSTIPATION; Start 09/30/16 at 15: 30 Pantoprazole (Protonix Iv) 40 mg DAILY@06 IV Last administered on 10/02/16 06: 13; Admin Dose 40 MG; Start 10/01/16 at 06:00 Amlodipine Besylate (Norvasc) 10 mg DAILY PO Last administered on 10/02/16 08: 51; Admin Dose 10 MG; Start 09/30/16 at 20:30 Lisinopril (Zestril) 40 mg DAILY PO Last administered on 10/02/16 08:51; Admin Dose 40 MG; Start 09/30/16 at 20:30 Hydralazine HCl (Apresoline) 10 mg Q4H PRN IV SBP>170; Start 09/30/16 at 20:30 Indomethacin (Indocin Supp) 100 mg ONCE ONCE [place] ; Start 10/03/16 at 10:30; Stop 10/03/16 at 10:31 LELIA BEAR Oct 02, 2016 11:29
--- NOTE | 2016-10-02 12:01 | PN ---
Date/Time of Note Date/Time of Note DATE: 10/02/16 TIME: 12:00 Assessment/Plan VTE Prophylaxis VTE Prophylaxis Intervention: SCD's Lines/Catheters IV Catheter Type (from [facility]): Peripheral IV Urinary Cath still in place: No Assessment/Plan Chief Complaint/Hosp Course Assessment and Plan: 1. 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 Supervisor Packing Room following. Tentative plan for ERCP.. We will provide analgesics as needed. 2. Accelerated hypertension. We will provide antihypertensives and adjust as needed. 3. Obesity. Weight reduction is advised. 4. Spondylosis. Patient reported to be planned for surgery on 10/11/2016 at [facility] by her outside surgeon. We will provide with analgesics as needed. 5. History of symptomatic multinodular goiter status post total thyroidectomy. The patient with no active issues at this time. We will continue to monitor. GERD. We will provide with PPI. Disposition and plan: Plan for ERCP 10/03/2016. We'll follow-up. Continue supportive care. Discussed plan of care with Dr. Healy Problems: Subjective 24 Hr Interval Summary Free Text/Dictation Comfortable at this time. No apparent distress Exam/Review of Systems Vital Signs Vitals Vital Signs Date Time Temp Pulse Resp B/P Pulse Ox O2 Delivery O2 Flow Rate FiO2 10/02/16 07:53 98.4 57 16 123/58 94 10/01/16 08:00 Nasal Cannula 2.0 Intake and Output 10/01/16 10/01/16 10/02/16 14:59 22:59 06:59 Intake Total 1680 ml 930 ml Output Total 400 ml 600 ml Balance 1280 ml 330 ml Exam General: No acute signs or symptoms of distress Eyes: pupils equal round, Anicteric sclera Neck: Supple nontender, no JVD Cardiac: S1, S2 auscultated, regular rhythm and rate Pulmonary: No coarse rhonchi or breathing auscultated GI: Abdomen soft nontender nondistended, bowel sounds active Extremities: No edema bilateral lower extremities Skin: Clean dry and intact Neurologic: Alert to person place and time and situation Results Result Diagram: 10/02/16 0435 10/02/16 0435 Results 24 hrs Laboratory Tests Test 10/02/16 04:35 Anion Gap 14 Basophils # 0.0 Basophils % 0.5 Blood Urea Nitrogen 13 CA 19-9 Antigen 5.0 Calcium Level 8.8 Carbon Dioxide Level 29 Chloride Level 104 Creatinine 0.52 Direct Bilirubin 0.00 Eosinophils # 0.1 Eosinophils % 1.9 Glucose Level 86 Hematocrit 36.0 L Hemoglobin 12.5 Lipase 95 Lymphocytes # 2.1 Lymphocytes % 40.1 Mean Corpuscular Hemoglobin 29.7 Mean Corpuscular Hemoglobin Concent 34.7 Mean Corpuscular Volume 85.5 Mean Platelet Volume 8.8 Monocytes # 0.4 Monocytes % 8.3 Neutrophils # 2.5 Neutrophils % 49.2 Nucleated Red Blood Cells # 0.0 Nucleated Red Blood Cells % 0.0 Platelet Count 205 Potassium Level 3.7 Red Blood Count 4.21 Red Cell Distribution Width 13.1 Sodium Level 143 Total Bilirubin 0.0 L White Blood Count 5.2 # Medications Medications Current Medications Aspirin (Halfprin) 81 mg DAILY PO Last administered on 10/02/16 08:50; Admin Dose 81 MG; Start 10/01/16 at 09:00 Tramadol HCl 50 mg 50 mg BID PO Last administered on 10/02/16 08:53; Admin Dose 50 MG; Start 09/30/16 at 21:00 Sodium Chloride (NS) 1,000 ml @ 80 mls/hr [id number] IV Last administered on 04:51; Admin Dose 80 MLS/HR; Start 09/30/16 at 15:21 Ondansetron HCl (Zofran Inj) 4 mg Q6H PRN IV NAUSEA AND/OR VOMITING; Start 09/30 at 15:30 Acetaminophen (Tylenol Tab) 650 mg Q6H PRN PO PAIN LEVEL 1-3 OR FEVER; Start at 15:30 Acetaminophen (Tylenol Supp) 650 mg Q6H PRN [place] PAIN LEVEL 1-3 OR FEVER; Start 09/30/16 at 15:30 Acetaminophen/ Hydrocodone Bitart ([place] (5/325)) 1 tab Q6H PRN PO MODERATE PAIN LEVEL 4-6; Start 09/30/16 at 15:30 Acetaminophen/ Hydrocodone Bitart ([place] (5/325)) 2 tab Q6H PRN PO SEVERE PAIN LEVEL 7-10; Start 09/30/16 at 15:30 Morphine Sulfate (morphine) 2 mg Q4H PRN IV SEVERE PAIN LEVEL 7-10; Start at 15:30 Docusate Sodium (Colace) 100 mg Q12H PRN PO CONSTIPATION; Start 09/30/16 at 15: 30 Magnesium Hydroxide (Milk Of Mag) 30 ml DAILY PRN PO CONSTIPATION; Start at 15:30 Bisacodyl (Dulcolax Supp) 10 mg DAILY PRN [place] CONSTIPATION; Start 09/30/16 at 15: 30 Pantoprazole (Protonix Iv) 40 mg DAILY@06 IV Last administered on 10/02/16 06: 13; Admin Dose 40 MG; Start 10/01/16 at 06:00 Amlodipine Besylate (Norvasc) 10 mg DAILY PO Last administered on 10/02/16 08: 51; Admin Dose 10 MG; Start 09/30/16 at 20:30 Lisinopril (Zestril) 40 mg DAILY PO Last administered on 10/02/16 08:51; Admin Dose 40 MG; Start 09/30/16 at 20:30 Hydralazine HCl (Apresoline) 10 mg Q4H PRN IV SBP>170; Start 09/30/16 at 20:30 Indomethacin (Indocin Supp) 100 mg ONCE ONCE CO ; Start 10/03/16 at 10:30; Stop 10/03/16 at 10:31 CLAIRE LINO Oct 02, 2016 12:01
[2016-10-02 19:40] VITALS: BP 140/62; RESP 16
[2016-10-03] VITALS (16 sets, daily range): BP systolic 106–168; BP diastolic 58–79; PULSE 74–98; RESP 14–20
[2016-10-03] MEDS: PANTOPRAZOLE 40 MG INJ IV SCH (05:34)
[2016-10-03] MEDS: SOD CHLORIDE 0.9% 1,000 ML IV SCH ×3 (05:35→18:21)
[2016-10-03 06:27] LABS: BASOPHILS % 0.6 % (0.0-2.0); EOSINOPHILS # 0.1 10^3/ul (0.0-0.5); EOSINOPHILS % 2.2 % (0.0-7.0); HEMATOCRIT 36.1 % (37.0-47.0); HEMOGLOBIN 12.4 g/dl (12.0-16.0); LYMPHOCYTES % 37.1 % (15.0-51.0); MEAN CORPUSCULAR HEMOGLOBIN 29.5 pg (29.0-33.0); MEAN CORPUSCULAR HGB CONC 34.3 g/dl (32.0-37.0); MEAN CORPUSCULAR VOLUME 86.1 fl (82.0-101.0); MEAN PLATELET VOLUME 8.7 fl (7.4-10.4); MONOCYTE # 0.4 10^3/ul (0.3-0.9); MONOCYTES % 7.4 % (0.0-11.0); NEUTROPHIL # 2.8 10^3/ul (1.6-7.5); NEUTROPHILS % 52.7 % (39.0-77.0); PLATELET COUNT 211 10^3/UL (140-440); RED BLOOD COUNT 4.19 10^6/ul (4.20-5.40); RED CELL DISTRIBUTION WIDTH 13.1 % (11.5-14.5); UNCORRECTED WBC 5.3 10^3/ul (4.8-10.8); WHITE BLOOD COUNT 5.3 10^3/ul (4.8-10.8)
[2016-10-03 06:28] LABS: CONDITION 1
[2016-10-03 06:36] LABS: INR 1.11; PROTIME 14.3 Sec (12.2-14.2); PT RATIO 1.1
[2016-10-03 06:37] LABS: PARTIAL THROMBOPLASTIN TIME 31.5 Sec (25.0-35.0)
[2016-10-03 06:42] LABS: POTASSIUM 3.7 mmol/L (3.5-5.1)
[2016-10-03 06:44] LABS: CREATININE 0.53 mg/dl (0.44-1.00)
[2016-10-03 06:45] LABS: CALCIUM 8.9 mg/dl (8.4-10.2)
[2016-10-03] MEDS: ASPIRIN (EC) 81 MG TAB PO SCH (08:23)
[2016-10-03] MEDS: LISINOPRIL 20 MG TAB PO SCH (08:24)
[2016-10-03] MEDS: AMLODIPINE 10 MG TAB PO SCH (08:25)
[2016-10-03] MEDS: traMADol 50 MG TAB PO SCH ×2 (08:25→20:56)
[2016-10-03] MEDS ORDERED: INDOMETHACIN 50 MG SUPP PR ONE (10:30)
--- NOTE | 2016-10-03 11:59 | PN ---
Date/Time of Note Date/Time of Note DATE: 10/03/16 TIME: 11:57 Assessment/Plan VTE Prophylaxis VTE Prophylaxis Intervention: SCD's Lines/Catheters IV Catheter Type (from Nrs): Peripheral IV Urinary Cath still in place: No Assessment/Plan Chief Complaint/Hosp Course Assessment and Plan: 1. 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 Weight Checker following. Tentative plan for ERCP.. We will provide analgesics as needed. 2. Accelerated hypertension. We will provide antihypertensives and adjust as needed. 3. Obesity. Weight reduction is advised. 4. Spondylosis. Patient reported to be planned for surgery on 10/11/2016 at [facility] by her outside surgeon. We will provide with analgesics as needed. 5. History of symptomatic multinodular goiter status post total thyroidectomy. The patient with no active issues at this time. We will continue to monitor. GERD. We will provide with PPI. Disposition and plan: Plan for ERCP 10/03/2016. cont with GI recs. Discussed plan of care with Dr. Núñez Problems: Subjective 24 Hr Interval Summary Free Text/Dictation denies any abdominal pain at this time. appears comfortable. Exam/Review of Systems Vital Signs Vitals Vital Signs Date Time Temp Pulse Resp B/P Pulse Ox O2 Delivery O2 Flow Rate FiO2 10/03/16 07:43 97.8 94 18 126/60 93 10/02/16 22:44 Nasal Cannula 2.0 Intake and Output 10/02/16 10/02/16 10/03/16 15:00 23:00 07:00 Intake Total 990 ml 1040 ml Balance 990 ml 1040 ml Exam General: No acute signs or symptoms of distress Eyes: pupils equal round, Anicteric sclera Neck: Supple nontender, no JVD Cardiac: S1, S2 auscultated, regular rhythm and rate Pulmonary: No coarse rhonchi or breathing auscultated GI: Abdomen soft nontender nondistended, bowel sounds active Extremities: No edema bilateral lower extremities Skin: Clean dry and intact Neurologic: Alert to person place and time and situation Results Result Diagram: 10/03/16 0532 10/03/16 0532 Results 24 hrs Laboratory Tests Test 10/03/16 05:32 Activated Partial Thromboplast Time 31.5 Anion Gap 16 Basophils # 0.0 Basophils % 0.6 Blood Urea Nitrogen 11 Calcium Level 8.9 Carbon Dioxide Level 28 Chloride Level 104 Creatinine 0.53 Eosinophils # 0.1 Eosinophils % 2.2 Glucose Level 85 Hematocrit 36.1 L Hemoglobin 12.4 INR International Normalized Ratio 1.11 Lymphocytes # 2.0 Lymphocytes % 37.1 Mean Corpuscular Hemoglobin 29.5 Mean Corpuscular Hemoglobin Concent 34.3 Mean Corpuscular Volume 86.1 Mean Platelet Volume 8.7 Monocytes # 0.4 Monocytes % 7.4 Neutrophils # 2.8 Neutrophils % 52.7 Nucleated Red Blood Cells # 0.0 Nucleated Red Blood Cells % 0.0 Platelet Count 211 Potassium Level 3.7 Prothrombin Time 14.3 H Prothrombin Time Ratio 1.1 Red Blood Count 4.19 L Red Cell Distribution Width 13.1 Sodium Level 144 White Blood Count 5.3 Medications Medications Current Medications Aspirin (Halfprin) 81 mg DAILY PO Last administered on 10/03/16 08:23; Admin Dose 81 MG; Start 10/01/16 at 09:00 Tramadol HCl 50 mg 50 mg BID PO Last administered on 10/03/16 08:25; Admin Dose 50 MG; Start 09/30/16 at 21:00 Sodium Chloride (NS) 1,000 ml @ 80 mls/hr [id number] IV Last administered on 22:15; Admin Dose 80 MLS/HR; Start 09/30/16 at 15:21 Ondansetron HCl (Zofran Inj) 4 mg Q6H PRN IV NAUSEA AND/OR VOMITING; Start 09/30 at 15:30 Acetaminophen (Tylenol Tab) 650 mg Q6H PRN PO PAIN LEVEL 1-3 OR FEVER; Start at 15:30 Acetaminophen (Tylenol Supp) 650 mg Q6H PRN [place] PAIN LEVEL 1-3 OR FEVER; Start 09/30/16 at 15:30 Acetaminophen/ Hydrocodone Bitart ([place] (5/325)) 1 tab Q6H PRN PO MODERATE PAIN LEVEL 4-6; Start 09/30/16 at 15:30 Acetaminophen/ Hydrocodone Bitart ([place] (5/325)) 2 tab Q6H PRN PO SEVERE PAIN LEVEL 7-10; Start 09/30/16 at 15:30 Morphine Sulfate (morphine) 2 mg Q4H PRN IV SEVERE PAIN LEVEL 7-10; Start at 15:30 Docusate Sodium (Colace) 100 mg Q12H PRN PO CONSTIPATION; Start 09/30/16 at 15: 30 Magnesium Hydroxide (Milk Of Mag) 30 ml DAILY PRN PO CONSTIPATION; Start at 15:30 Bisacodyl (Dulcolax Supp) 10 mg DAILY PRN [place] CONSTIPATION; Start 09/30/16 at 15: 30 Pantoprazole (Protonix Iv) 40 mg DAILY@06 IV Last administered on 10/03/16 05: 34; Admin Dose 40 MG; Start 10/01/16 at 06:00 Amlodipine Besylate (Norvasc) 10 mg DAILY PO Last administered on 10/03/16 08: 25; Admin Dose 10 MG; Start 09/30/16 at 20:30 Lisinopril (Zestril) 40 mg DAILY PO Last administered on 10/03/16 08:24; Admin Dose 40 MG; Start 09/30/16 at 20:30 Hydralazine HCl (Apresoline) 10 mg Q4H PRN IV SBP>170; Start 09/30/16 at 20:30 CLAIRE LINO Oct 03, 2016 11:58
--- NOTE | 2016-10-03 16:35 | RADRPT ---
Echocardiogram Report Patient Name: BRIAN MARKHAM Gender: Female Date: 1955 Study Date: 02-Oct-2016 Construction Analyst: TRISTEN Location: I Ref. Physician: CLAIRE LINO Quality: Adequate Procedures: Transthoracic echocardiogram with complete 2D, M-Mode, and Doppler examination. Indications: Evaluate Left Ventricular function, cardiac clearance. 2D/M Mode Doppler Measurement Value Normal Ranges Measurement Value Normal Ranges AoR Diam MM 3.2 cm AV Peak Markell 1.5 m/sec LVIDd 2D 3.3 3.5 - 5.6 cm AV Peak PG 8.8 mmHg LVIDs 2D 2.2 2.1 - 4.1 cm LVOT Peak Markell 1.1 m/sec LVPWd 2D 1.3 0.6 - 1.1 cm LVOT Peak PG 4.5 mmHg IVSd 2D 1.5 0.6 - 1.1 cm MV E Peak Markell 0.9 m/sec EDV 2D 44.9 cm3 MV A Peak Markell 0.5 m/sec ESV 2D 10.8 cm3 MV E/A 1.8 LA Dimen 2D 3.8 2.3 - 4.0 cm MV Decel Time 168 msec MV Decel Eddy 5 MV E/A 1.8 PV Peak Markell 1.0 m/sec PV Peak PG 4.0 mmHg Findings Left Ventricle: Normal left ventricular systolic function. Normal left ventricular cavity size. Mild concentric left ventricular hypertrophy. Ejection fraction is visually estimated at 6065 %. Tissue Doppler/Mitral Doppler indices are consistent with pseudonormalization with mildly elevated left atrial pressure (Stage II diastolic dysfunction), patient could not Valsalva. Right Ventricle: Normal right ventricular size. Normal right ventricular systolic function. Left Atrium: The left atrium is normal in size. Right Atrium: The right atrium is normal in size. Atrial Septum: Normal atrial septum. Mitral Valve: Normal appearance of the mitral valve. Trace mitral regurgitation. Aortic Valve: Normal appearance of the aortic valve. No significant aortic stenosis or insufficiency. Tricuspid Valve: Normal appearance of the tricuspid valve. Unable to obtain RVSP due to minimal presence of tricuspid regurgitation. No evidence of tricuspid regurgitation. Pulmonic Valve: Normal pulmonic valve appearance. There is trace pulmonic regurgitation. Pericardium: Normal pericardium with no significant pericardial effusion. Aorta: Normal aortic root. IVC: Normal size and normal respiratory collapse consistent with normal right atrial pressure. Pulmonary Artery: Normal pulmonary artery size. Conclusions 1.The left ventricle is normal in size and systolic function. 2.Estimated left ventricular ejection fraction of 60-65%. 3.Mild concentric left ventricular hypertrophy. Moderate left ventricular diastolic dysfunction. Electronically Signed By: Javed Wilburn 03-Oct-2016 16:34:46 -0800 Patient Name: BRIAN MARKHAM Study Date: 02-Oct-2016 [id number]
[2016-10-03] MEDS ORDERED: IOHEXOL 300MG/ML 30 ML BTL ONE (17:17)
--- NOTE | 2016-10-03 17:37 | HPN ---
Date/Time of Note Date/Time of Note DATE: 10/03/16 TIME: 17:37 Interval H&P Admission Note Pt. seen H&P reviewed: No system changes JULIO CESAR DIA MD Oct 03, 2016 17:37
[2016-10-03] MEDS ORDERED: SUCCINYLCHOLINE CHLORIDE 100 MG/5 ML SYG IV ONE (17:43)
[2016-10-03] MEDS ORDERED: NEOSTIGMINE 3 MG/3 ML SYRINGE ONE ×2 (17:43→17:54)
[2016-10-03] MEDS ORDERED: GLYCOPYRROLATE 0.4 MG INJ ONE ×2 (17:43→17:54)
[2016-10-03] MEDS ORDERED: ROCURONIUM 50 MG INJ ONE (17:43)
[2016-10-03] MEDS ORDERED: PROPOFOL 20 ML ONE (17:43)
[2016-10-03] MEDS ORDERED: LIDOCAINE 2% (SDV) 5 ML INJ ONE (17:43)
[2016-10-03] MEDS ORDERED: MIDAZOLAM 1 MG/ML 2 ML INJ IV PRN (18:00)
[2016-10-03] MEDS ORDERED: METOCLOPRAMIDE 10 MG INJ IV PRN (18:00)
[2016-10-03] MEDS ORDERED: MEPERIDINE 25 MG INJ IV PRN (18:00)
[2016-10-03] MEDS ORDERED: DIPHENHYDRAMINE 50 MG INJ IV PRN (18:00)
[2016-10-03] MEDS ORDERED: ONDANSETRON 4 MG INJ IV PRN (18:00)
[2016-10-03] MEDS ORDERED: FENTAnyl 50 MCG/ML VIAL IV PRN (18:00)
[2016-10-03] MEDS ORDERED: CEFAZOLIN 1 GM INJ ONE (18:07)
[2016-10-03] MEDS ORDERED: METOCLOPRAMIDE 10 MG INJ ONE (18:40)
[2016-10-03] MEDS ORDERED: ONDANSETRON 4 MG INJ ONE (18:40)
--- NOTE | 2016-10-03 22:36 | RADRPT ---
PROCEDURE: Intraoperative imaging for ERCP with fluoroscopy. CLINICAL INDICATION: Right upper quadrant pain. Intraoperative. TECHNIQUE: 21 images of the right upper quadrant of the abdomen were obtained in the operating [place] m with an image intensifier. No radiologist was in attendance. 2.8 minutes of fluoroscopy time was used. COMPARISON: MRCP dated 09/30/2016. FINDINGS: Images demonstrate the endoscope in position. Contrast was injected into the pancreatic duct and th e common bile duct. The common bile duct is dilated. A balloon sweep was made. IMPRESSION: 1. ERCP as described above. RPTAT: QQ .Chidi Olivera MD, Date Time Electronically viewed and signed by .Chidi Olivera MD, on 10/03/2016 22:36 .R/
[2016-10-04] MEDS: PANTOPRAZOLE 40 MG INJ IV SCH (05:43)
[2016-10-04] MEDS: SOD CHLORIDE 0.9% 1,000 ML IV SCH ×2 (05:43→10:34)
[2016-10-04 06:32] LABS: BASOPHILS % 0.3 % (0.0-2.0); EOSINOPHILS % 0.4 % (0.0-7.0); HEMATOCRIT 36.7 % (37.0-47.0); HEMOGLOBIN 12.6 g/dl (12.0-16.0); LYMPHOCYTES # 1.2 10^3/ul (0.8-2.9); LYMPHOCYTES % 11.7 % (15.0-51.0); MEAN CORPUSCULAR HEMOGLOBIN 29.5 pg (29.0-33.0); MEAN CORPUSCULAR HGB CONC 34.3 g/dl (32.0-37.0); MEAN PLATELET VOLUME 8.6 fl (7.4-10.4); MONOCYTE # 0.3 10^3/ul (0.3-0.9); MONOCYTES % 3.1 % (0.0-11.0); NEUTROPHIL # 8.6 10^3/ul (1.6-7.5); NEUTROPHILS % 84.5 % (39.0-77.0); PLATELET COUNT 227 10^3/UL (140-440); RED BLOOD COUNT 4.27 10^6/ul (4.20-5.40); RED CELL DISTRIBUTION WIDTH 12.7 % (11.5-14.5); UNCORRECTED WBC 10.1 10^3/ul (4.8-10.8); WHITE BLOOD COUNT 10.1 10^3/ul (4.8-10.8)
[2016-10-04 06:42] LABS: POTASSIUM 3.8 mmol/L (3.5-5.1)
[2016-10-04 06:44] LABS: CREATININE 0.54 mg/dl (0.44-1.00)
[2016-10-04 06:45] LABS: CALCIUM 8.9 mg/dl (8.4-10.2); CONDITION 1
[2016-10-04 08:34] VITALS: BP 121/56; RESP 19
[2016-10-04] MEDS: AMLODIPINE 10 MG TAB PO SCH (08:38)
[2016-10-04] MEDS: ASPIRIN (EC) 81 MG TAB PO SCH (08:38)
[2016-10-04] MEDS: traMADol 50 MG TAB PO SCH (08:39)
[2016-10-04] MEDS: LISINOPRIL 20 MG TAB PO SCH (08:39)
[2016-10-04 08:40] VITALS: BP 111/58; PULSE 78
[2016-10-04] MEDS ORDERED: ULT50 PO (09:34)
[2016-10-04] MEDS ORDERED: ESOM40CA PO (09:34)
[2016-10-04] MEDS ORDERED: LISI20TA11 PO (09:34)
--- NOTE | 2016-10-04 09:38 | PDOCDIS ---
Discharge Instructions DIAGNOSIS Discharge Diagnosis: 1. choledocholithiasis CONDITION Patient Condition: Stable HOME CARE INSTRUCTIONS: Diet Instructions: Low Fat /Cholesterol FOLLOW UP/APPOINTMENTS Appointments 1. Follow up with Dr. Camron Kaba in one week 2. Follow up with your primary care provider in 1-2 weeks CLAIRE LINO Oct 04, 2016 09:38
--- NOTE | 2016-10-04 14:43 | CONS ---
Date/Time of Note Date/Time of Note DATE: 10/04/16 TIME: 14:42 Assessment/Plan Assessment/Plan Additional Assessment/Plan * MRCP notes: * Common bile duct dilatation with heterogeneous intraluminal signal intensity , partially attributed to pneumobilia. Stones, sludge and debris may also be present. * Choledochoduodenal fistula. * ERCP * Large opening duodenal bulb, choledochoduodenal fistula widely open * [place] papilla intact small ERS * No other intraductal pathology * Plan observation or outpatient EUS * Advance diet as tolerated * Patient stable GI standpoint * Further recommendations depend on clinical course * Patient seen in collaboration with Dr. Kaba Consultation Date/Type/Reason Admit Date/Time Sep 30, 2016 at 15:10 Type of Consultation: Gastroenterology Referring Provider: CLAIRE LINO 24 HR Interval Summary Free Text/Dictation Tolerating diet Denies abdominal pain Advised patient via [facility] automobile spring repairer of ERCP findings Advised patient to follow-up with GI and she may need outpatient EUS Exam/Review of Systems Vital Signs Vitals Vital Signs Date Time Temp Pulse Resp B/P Pulse Ox O2 Delivery O2 Flow Rate FiO2 10/04/16 08:40 98.0 78 111/58 10/04/16 08:34 19 98 10/03/16 19:44 Room Air 10/03/16 18:44 6.0 Intake and Output 10/03/16 10/03/16 10/04/16 15:00 23:00 07:00 Intake Total 440 ml 960 ml 1080 ml Output Total 3 ml Balance 440 ml 957 ml 1080 ml Exam Constitutional: alert, obese, oriented, well developed Psych: nl mood/affect Head: atraumatic, normocephalic Eyes: EOMI, nl conjunctiva, nl lids, nl sclera ENMT: nl external ears & nose, nl lips & teeth, nl nasal mucosa & septum Neck: non-tender Respiratory: normal air movement Cardiovascular: regular rate and rhythm Gastrointestinal: soft, nontender Neurological: COURT BAILIFF II-XII intact Results Result Diagram: 10/04/1629 10/04/16 0529 Results 24 hrs Laboratory Tests Test 10/04/16 05:29 Anion Gap 16 Basophils # 0.0 Basophils % 0.3 Blood Urea Nitrogen 11 Calcium Level 8.9 Carbon Dioxide Level 28 Chloride Level 103 Creatinine 0.54 Eosinophils # 0.0 Eosinophils % 0.4 Glucose Level 107 Hematocrit 36.7 L Hemoglobin 12.6 Lymphocytes # 1.2 Lymphocytes % 11.7 L Mean Corpuscular Hemoglobin 29.5 Mean Corpuscular Hemoglobin Concent 34.3 Mean Corpuscular Volume 86.0 Mean Platelet Volume 8.6 Monocytes # 0.3 Monocytes % 3.1 Neutrophils # 8.6 H Neutrophils % 84.5 H Nucleated Red Blood Cells # 0.0 Nucleated Red Blood Cells % 0.0 Platelet Count 227 Potassium Level 3.8 Red Blood Count 4.27 Red Cell Distribution Width 12.7 Sodium Level 143 White Blood Count 10.1 # Medications Medications Current Medications Aspirin (Halfprin) 81 mg DAILY PO Last administered on 10/04/16 08:38; Admin Dose 81 MG; Start 10/01/16 at 09:00 Tramadol HCl 50 mg 50 mg BID PO Last administered on 10/03/16 08:25; Admin Dose 50 MG; Start 09/30/16 at 21:00 Sodium Chloride (NS) 1,000 ml @ 80 mls/hr [id number] IV Last administered on 10/04 10:34; Admin Dose 80 MLS/HR; Start 09/30/16 at 15:21 Ondansetron HCl (Zofran Inj) 4 mg Q6H PRN IV NAUSEA AND/OR VOMITING; Start 09/30 at 15:30 Acetaminophen (Tylenol Tab) 650 mg Q6H PRN PO PAIN LEVEL 1-3 OR FEVER; Start at 15:30 Acetaminophen (Tylenol Supp) 650 mg Q6H PRN [place] PAIN LEVEL 1-3 OR FEVER; Start 09/30/16 at 15:30 Acetaminophen/ Hydrocodone Bitart ([place] (5/325)) 1 tab Q6H PRN PO MODERATE PAIN LEVEL 4-6; Start 09/30/16 at 15:30 Acetaminophen/ Hydrocodone Bitart ([place] (5/325)) 2 tab Q6H PRN PO SEVERE PAIN LEVEL 7-10; Start 09/30/16 at 15:30 Morphine Sulfate (morphine) 2 mg Q4H PRN IV SEVERE PAIN LEVEL 7-10; Start at 15:30 Docusate Sodium (Colace) 100 mg Q12H PRN PO CONSTIPATION; Start 09/30/16 at 15: 30 Magnesium Hydroxide (Milk Of Mag) 30 ml DAILY PRN PO CONSTIPATION; Start at 15:30 Bisacodyl (Dulcolax Supp) 10 mg DAILY PRN [place] CONSTIPATION; Start 09/30/16 at 15: 30 Pantoprazole (Protonix Iv) 40 mg DAILY@06 IV Last administered on 10/04/16 05: 43; Admin Dose 40 MG; Start 10/01/16 at 06:00 Amlodipine Besylate (Norvasc) 10 mg DAILY PO Last administered on 10/04/16 08: 38; Admin Dose 10 MG; Start 09/30/16 at 20:30 Lisinopril (Zestril) 40 mg DAILY PO Last administered on 10/04/16 08:39; Admin Dose 40 MG; Start 09/30/16 at 20:30 Hydralazine HCl (Apresoline) 10 mg Q4H PRN IV SBP>170; Start 09/30/16 at 20:30 LISA GARCIA Oct 04, 2016 14:42
--- NOTE | 2016-10-04 15:38 | DS ---
Date/Time of Note Date/Time of Note DATE: 10/04/16 TIME: 15:30 Discharge Summary Admission/Discharge Info Admit Date/Time Sep 30, 2016 at 15:10 Discharge Date/Time Hospital Course This is a 61-year-old female with history of hypertension, spondylosis, arthritis, cardiology arrhythmia, symptomatic multinodular goiter, obesity, GERD , who came to [facility] due to reports of right upper quadrant abdominal pain. Going to the patient she had been having right upper quadrant abdominal pain for 3 days duration. He she initially went to the hospital and was told that she had a UTI and was sent home on oral antibiotic. Since then her pain again worsened and she came back to the hospital for further evaluation. Upon examination she did have abdominal ultrasound that did show previous cholecystectomy and increased echogenicity Had about likely to correspond to pneumobilia. She did have CT scan of abdomen for further delineation at did show common bile duct dilation with heterogeneous intraluminal signal intensity partially attributed to pneumobilia as well as stones and sludge and debris. There is also seen a choledochoduodenal fistula. Patient was initially placed as npo and we did get gastric sock liner consultation. She was continued on IV hydration for which she did respond well to. Patient was also provided with analgesics. We did gradually advance patient' s diet and she did tolerate well. She did have ERCP and per study did show her to have large opening duodenal bulb, choledochoduodenal fistula widely open. Per GI recommendations she was recommended for outpatient. Ultrasound. We did get manager case to follow for this. Patient was otherwise optimized medically. She was continued on antihypertensives for her hypertension and she was advised for weight reduction for her obesity. She did have history of spondylosis for which she stated she would be following up for outpatient elective surgery on . She was continued analgesics. During her course of stay she did improve. She was able to tolerate oral diet and she did report resolution of her abdominal pain. The plan of care was discussed with the patient and patient did verbalize her understanding. On the day of discharge patient was in stable condition Discussed plan of care with Dr. Núñez Disposition: home Home Meds Active Scripts Lisinopril* (Lisinopril*) 20 Mg Tablet, 40 MG PO DAILY for 30 Days, TAB Prov:CLAIRE LINO 10/04/16 Esomeprazole Mag Trihydrate (Nexium) 40 Mg Capsule.dr, 40 MG PO DAILY, #30 CAP Prov:CLAIRE LINO 10/04/16 Tramadol HCl (Tramadol HCl) 50 Mg Tab, 50 MG PO BID, #30 TAB Prov:CLAIRE LINO 10/04/16 Reported Medications Lisinopril* (Lisinopril*) 40 Mg Tablet, 40 MG PO DAILY, TAB 08/03/15 Meloxicam* (Meloxicam*) 7.5 Mg/5 Ml Oral.susp, 15 MG PO DAILY, ML 08/03/15 Amlodipine Besylate* (Amlodipine Besylate*) 10 Mg Tablet, 10 MG PO DAILY, TAB 08/03/15 Aspirin* (Aspirin* EC) 81 Mg Tablet.dr, 81 MG PO DAILY, TAB 11/27/14 Discontinued Scripts Hydrocodone/Acetaminophen ([place] 5-325 Tablet) 1 Each Tablet, 1 TAB PO Q6H Y for PAIN, #7 TAB Prov:ALEJANDRA DAVIES PA-C 09/28/16 Cephalexin* (Keflex*) 500 Mg Capsule, 500 MG PO QID for 5 Days, CAP Prov:ALEJANDRA DAVIES PA-C 09/28/16 Cyclobenzaprine Hcl* (Cyclobenzaprine Hcl*) 10 Mg Tablet, 10 MG PO TID, #15 TAB Prov:MARLENY GRAFF NP 05/11/16 Ibuprofen* (Motrin*) 600 Mg Tab, 600 MG PO Q6H Y for PAIN AND OR ELEVATED TEMP, #30 TAB Prov:MARLENY GRAFF NP 05/11/16 Hydrocodone Bit-Acetaminophen* ([place]*) 5-325 Mg Tab, 1 TAB PO Q6 Y for PAIN, # 20 TAB Prov:MARLENY GRAFF NP 05/11/16 Cyclobenzaprine Hcl* (Cyclobenzaprine Hcl*) 10 Mg Tablet, 5 MG PO TID, #20 TAB Prov:BERNARDA ANDRADE MD 09/23/15 Hydrocodone Bit-Acetaminophen* ([place]*) 5-325 Mg Tab, 1 TAB PO Q6 Y for PAIN, # 20 TAB Prov:BERNARDA ANDRADE MD 09/23/15 Ibuprofen* (Ibuprofen*) 600 Mg Tablet, 600 MG PO Q6 for PAIN, #30 TAB Prov:CADEN MONIQUE 08/06/15 Follow-up Plan CONDITION Patient Condition: Stable HOME CARE INSTRUCTIONS: Diet Instructions: Low Fat /Cholesterol FOLLOW UP/APPOINTMENTS Appointments 1. Follow up with Dr. Camron Kaba in one week 2. Follow up with your primary care provider in 1-2 weeks Pending Labs Laboratory Tests Test 10/04/16 05:29 Anion Gap 16 (8-16) Basophils # 0.010^3/ul (0.0-0.1) Basophils % 0.3% (0.0-2.0) Blood Urea Nitrogen 11mg/dl (7-20) Calcium Level 8.9mg/dl (8.4-10.2) Carbon Dioxide Level 28mmol/L (21-31) Chloride Level 103mmol/L (97-110) Creatinine 0.54mg/dl (0.44-1.00) Eosinophils # 0.010^3/ul (0.0-0.5) Eosinophils % 0.4% (0.0-7.0) Glucose Level 107mg/dl (70-220) Hematocrit 36.7% (37.0-47.0) Hemoglobin 12.6g/dl (12.0-16.0) Lymphocytes # 1.210^3/ul (0.8-2.9) Lymphocytes % 11.7% (15.0-51.0) Mean Corpuscular Hemoglobin 29.5pg (29.0-33.0) Mean Corpuscular Hemoglobin Concent 34.3g/dl (32.0-37.0) Mean Corpuscular Volume 86.0fl (82.0-101.0) Mean Platelet Volume 8.6fl (7.4-10.4) Monocytes # 0.310^3/ul (0.3-0.9) Monocytes % 3.1% (0.0-11.0) Neutrophils # 8.610^3/ul (1.6-7.5) Neutrophils % 84.5% (39.0-77.0) Nucleated Red Blood Cells # 0.010^3/ul (0.0-0.0) Nucleated Red Blood Cells % 0.0/100WBC (0.0-0.0) Platelet Count 18225^3/UL (140-440) Potassium Level 3.8mmol/L (3.5-5.1) Red Blood Count 4.2710^6/ul (4.20-5.40) Red Cell Distribution Width 12.7% (11.5-14.5) Sodium Level 143mmol/L (135-144) White Blood Count 10.110^3/ul (4.8-10.8) CLAIRE LINO Oct 04, 2016 15:38
--- NOTE | 2016-10-04 18:50 | GILP ---
DATE OF PROCEDURE: 10/03/2016 DATE: 10/03/2016 NAME OF PROCEDURE: Endoscopic retrograde cholangiopancreatography with endoscopic retrograde sphinc terotomy. SURGEON: Camron Kaba MD. 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 PREMEDICATION: General anesthesia. INSTRUMENT USED: Olympus side-viewing panendoscope. TECHNIQUE: After informed consent, with the patient/relatives understanding the procedure, its indic ations, potential risks, and complications, including but not limited to: allergic reaction, bleedin g, perforation or infection, and after all pertinent questions were answered to the patient's satisf action. The patient/relatives signed witnessed informed consent. Following this, premedication was administered slowly IV push under careful cardiovascular and respi ratory monitoring with pulse oximetry, automatic blood pressure and front desk monitor. Once the sedative effect was achieved, the patient was place in the prone position in the radiology special procedures suite; the side viewing panendoscope was introduced and advanced under visual con trol. Careful examination of the upper gastrointestinal tract, both on insertion as well as withdrawal of the instrument disclosed the following findings: ESOPHAGUS: The mucosa of the entire esophagus appears within normal limits. There is no evidence o f esophagitis, varices, neoplasm, or stricture. No Hiatal Hernia identified. STOMACH: Upon entrance to the stomach, air was insufflated, the gastric dyson distended normally. The mucosa of the fundus, body, and antrum of the stomach was carefully examined both head-on and on retroflexion, and shows no abnormalities. There is no evidence of gastritis, ulcers, or neoplasm. PYLORUS: The pylorus appears patent and within normal limits, with no evidence of gastric outlet ob struction. DUODENUM: The duodenal bulb shows the presence of significant opening in the proximal duodenal bulb , which given the history, may represent a fistulous tract. A cannula was applied to the area and w e attempted to inject contrast; however, no flow was identified and we proceeded to identify the giovanni audrey papilla, which was in the second portion of the duodenum. Once this was accomplished, the papil la was cannulated and we opacified the biliary tree. The biliary tree appears significantly dilated and there is clearly a communication between the biliary tree and the proximal small bowel with lar ge amounts of contrast exiting into the duodenum and refluxing into the stomach. A Guidewire was ad vanced to secure a position and then we proceeded to introduce a 12 to 15 mm balloon and we obtained a cholangiogram that shows the proximal biliary tree is essentially unremarkable with exception of some dilatation. In the distal common bile duct approximately 2 cm from the opening of the ampulla, there is significant communication with the duodenum. There appears to be no obstruction to the di stal flow of contrast. A small sphincterotomy had been performed prior to the introduction of a bal loon catheter. We then proceeded to withdraw the balloon and went back to the area of the proximal duodenum. With the balloon inflated to 15 mm occluded the opening in the duodenum and injected cont rast. On this occasion, we clearly documented communication between the duodenum and the biliary tr ee, which is fairly large and without any evidence of additional abnormalities. AMPULLA OF VATER: The ampulla of Vater was identified and carefully examined appearing within normal limits. 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 No significant obstruction or abnormalities are present. [place] papilla intact and connected with the biliary tree. A small sphincterotomy was performed to assist access and drainage. No other sig nificant intraductal abnormalities are noted. PLAN: The patient will continue present regimen. EUS would be advisable to reassess the area, as w e do not have a clear explanation to the formation of the choledochoduodenal fistula. Dictated By: CAMRON KABA MS/LUCÍA Conf#: [id number] DID#: [id number] CC: AMINTA MATUTE MD; CAMRON KABA;*[facility]*
== END 2016-10-04 17:50 | disposition home or self-care (01) | DRG 446 ==
LOC: E/R 00:16 → MS2 15:10
PROVIDERS: ADMIT Family Medicine; ATTEND Family Medicine
PROC: 0F9C8ZZ Drainage of Ampulla of Vater, Via Natural or Artificial Opening Endoscopic (ICD-10-PCS; principal; 2016-10-04)
DX: K83.3 Fistula of bile duct (principal); I10 Essential (primary) hypertension; M47.9 Spondylosis, unspecified; E04.2 Nontoxic multinodular goiter; E66.9 Obesity, unspecified; Z68.36 Body mass index [BMI] 36.0-36.9, adult
CPT/HCPCS: 74000; 74181; 74330; 76705; 80048; 80053; 80061; 82247; 82248; 83036; 83690; 83735; 84100; 84436; 84443; 84479; 85025; 85610; 85730; 86301; 93306; C9113; J0330; J0690; J2270; J2405; J2710; J2765; J7030; Q9967

== ENCOUNTER 2016-10-11 11:30 | Inpatient (IN) | payer OTHER ==
[~2016-10-11] VITALS: Ht 157.5 cm; Wt 86.0 kg
[~2016-10-11 11:30] MED LIST changes: -CEPH-443 PO; -CYCL-319 PO; -HYDR-3498 PO; -HYDR-906 PO; -IBUP-1542 PO; +LISI20TA11 PO; +TRAM50TA2 PO; -ULT50 PO
[2016-10-21] VITALS (24 sets, daily range): BP systolic 145–187; BP diastolic 66–91; PULSE 78–100; RESP 8–18; Ht 157.5 cm; Wt 86.0 kg
[2016-10-21] MEDS ORDERED: CEFAZOLIN 2 GM/50 ML (PMX) 50 ML IVPB ONE (08:00)
[2016-10-21] MEDS ORDERED: CA CHLORIDE 10% 10 ML SYRINGE ONE (09:23)
[2016-10-21] MEDS ORDERED: POLYMYXIN/BACITRACIN 1L IRRIG ONE (09:23)
[2016-10-21] MEDS ORDERED: THROMBIN 5000 UNIT VIAL ONE ×2 (09:23→12:33)
[2016-10-21] MEDS ORDERED: BUPIVACAINE 0.25%/EPI (SDV) 30 ML INJ ONE (09:23)
[2016-10-21] MEDS ORDERED: BUPIVACAINE 0.25% (MPF) 30 ML INJ ONE (09:23)
[2016-10-21] MEDS ORDERED: PANT40TA4 PO (09:30)
[2016-10-21] MEDS ORDERED: LEVO137T3 PO (09:30)
[2016-10-21] MEDS ORDERED: ROCURONIUM 50 MG INJ ONE (10:05)
[2016-10-21] MEDS ORDERED: HYDROmorphONE 2 MG/ML SYG ONE (10:05)
[2016-10-21] MEDS ORDERED: PROPOFOL 20 ML ONE ×2 (10:05→11:15)
[2016-10-21] MEDS ORDERED: MIDAZOLAM 1 MG/ML 2 ML INJ ONE (10:06)
[2016-10-21] MEDS ORDERED: ONDANSETRON 4 MG INJ ONE (10:06)
--- NOTE | 2016-10-21 10:07 | HPN ---
Date/Time of Note Date/Time of Note DATE: 10/21/16 TIME: 10:07 Interval H&P Admission Note Pt. seen H&P reviewed: No system changes EDWARD EMERSON MD Oct 21, 2016 10:07
[2016-10-21] MEDS ORDERED: METOPROLOL 5 MG INJ ONE (10:28)
[2016-10-21] MEDS ORDERED: CEPASTAT LOZENGE MT PRN (10:30)
[2016-10-21] MEDS ORDERED: PROCHLORPERAZINE 10 MG INJ IV PRN (10:30)
[2016-10-21] MEDS ORDERED: AL HYDROX/MG HYDROX/SIMETH 30 ML CUP PO PRN (10:30)
[2016-10-21] MEDS ORDERED: ONDANSETRON 4 MG INJ IV PRN ×2 (10:30→11:30)
[2016-10-21] MEDS ORDERED: CYCLOBENZAPRINE 10 MG TAB PO PRN (10:30)
[2016-10-21] MEDS ORDERED: HYDROmorphONE 1 MG/ML SYG IV PRN (10:30)
[2016-10-21] MEDS ORDERED: ACETAMINOPHEN 325 MG TAB PO PRN (10:30)
[2016-10-21] MEDS ORDERED: HYDROmorphONE 0.2 MG/ML PCA IV SCH (10:30)
[2016-10-21] MEDS ORDERED: CEFAZOLIN 1 GM/50 ML (PMX) 50 ML IVPB SCH ×2 (10:30→14:30)
[2016-10-21] MEDS ORDERED: DIPHENHYDRAMINE 25 MG CAP PO PRN (10:30)
[2016-10-21] MEDS ORDERED: NALOXONE (0.4 MG/ML) INJ IV PRN (10:30)
[2016-10-21] MEDS ORDERED: DIPHENHYDRAMINE 50 MG INJ IV PRN ×2 (10:30→11:30)
[2016-10-21] MEDS ORDERED: BETHANECHOL 25 MG TAB PO SCH (10:30)
[2016-10-21] MEDS ORDERED: CEFAZOLIN 1 GM INJ ONE (10:34)
[2016-10-21] MEDS ORDERED: FENTAnyl 50 MCG/ML VIAL ONE (10:56)
[2016-10-21] MEDS ORDERED: HEPARIN 1000 UNITS/ML 10 ML INJ ONE (11:07)
[2016-10-21] MEDS ORDERED: LABETALOL HCL 20MG INJ IV PRN (11:30)
[2016-10-21] MEDS ORDERED: METOCLOPRAMIDE 10 MG INJ IV PRN (11:30)
[2016-10-21] MEDS ORDERED: MEPERIDINE 25 MG INJ IV PRN (11:30)
[2016-10-21] MEDS ORDERED: hydrALAzine 20 MG INJ IV PRN ×2 (11:30→18:30)
[2016-10-21] MEDS ORDERED: HYDROmorphONE (0.2 MG/ML) 10ML SYG IV PRN ×3 (11:30)
[2016-10-21] MEDS ORDERED: HEMOSTATIC MATRIX/ THROMBIN 1 EA SYG ZFS ONE (13:02)
[2016-10-21] MEDS ORDERED: IOHEXOL 300MG/ML 30 ML BTL ONE (13:40)
[2016-10-21] MEDS ORDERED: EPHEDrine SULFATE 50 MG/5 ML SYG ONE (14:09)
--- NOTE | 2016-10-21 14:48 | RADRPT ---
PROCEDURE: Intraoperative imaging of the lumbar spine with fluoroscopy. CLINICAL INDICATION: Back pain. Intraoperative. TECHNIQUE: 7 images of the lumbar spine were obtained in the operating room with an image intensif ier. No radiologist was in attendance. 40.3 seconds of fluoroscopy time was used. COMPARISON: No prior study is available for comparison. FINDINGS: Images demonstrate surgical instruments overlying the lower lumbar spine. IMPRESSION: 1. Intraoperative imaging of the lumbar spine. RPTAT: QQ .Chidi Olivera MD, MD Date Time Electronically viewed and signed by .Chidi Olivera MD, MD on 10/21/2016 14:47 .R/
[2016-10-21 15:36] LABS: BASOPHILS % 0.3 % (0.0-2.0); EOSINOPHILS % 0.4 % (0.0-7.0); HEMATOCRIT 33.2 % (37.0-47.0); HEMOGLOBIN 11.7 g/dl (12.0-16.0); LYMPHOCYTES # 2.2 10^3/ul (0.8-2.9); LYMPHOCYTES % 21.8 % (15.0-51.0); MEAN CORPUSCULAR HEMOGLOBIN 29.6 pg (29.0-33.0); MEAN CORPUSCULAR HGB CONC 35.2 g/dl (32.0-37.0); MEAN PLATELET VOLUME 8.3 fl (7.4-10.4); MONOCYTE # 0.4 10^3/ul (0.3-0.9); MONOCYTES % 4.3 % (0.0-11.0); NEUTROPHIL # 7.3 10^3/ul (1.6-7.5); NEUTROPHILS % 73.2 % (39.0-77.0); PLATELET COUNT 191 10^3/UL (140-440); RED BLOOD COUNT 3.95 10^6/ul (4.20-5.40); RED CELL DISTRIBUTION WIDTH 13.4 % (11.5-14.5)
[2016-10-21 15:39] LABS: CONDITION 1
--- NOTE | 2016-10-21 15:43 | OPR ---
DATE OF OPERATION: 10/21/2016 PREOPERATIVE DIAGNOSIS: L5-S1 spondylolysis with listhesis, grade II, with bilateral foraminal stenosis and bilateral lower extremity radiculopathy, left greater than right. POSTOPERATIVE DIAGNOSIS: L5-S1 spondylolysis with listhesis, grade II, with bilateral foraminal stenosis and bilateral lower extremity radiculopathy, left greater than right. OPERATION PERFORMED: 1. Central decompressive laminectomy of L5-S1, with removal of spinous process and decompression of exiting L5 and traversing S1 nerve roots. 2. Decompression above and beyond the needs for stenosis for the purpose of decompression and fusion. 3. Placement of interbody cage measuring 8 mm in height and 23 mm in length into the L5-S1 level after diskectomy. 4. Pedicle screw placement of bilateral L5 and S1 pedicles. 5. Bilateral posterolateral bone grafting after high-speed bur decortication. 6. Platelet rich plasma achieved from bone marrow aspiration from the iliac crest. 7. Epidural pain medication, with catheter inserted with Isovue for a lateral epidurogram and injection of 4 mL of 0.25% Marcaine and 100 mcg of fentanyl. 8. Use of intraoperative microscope for microdiskectomy, microdissection and decompression of exiting and traversing nerve roots. 9. Cosmetic wound closure of 5-cm incision. 10. Increased complexity secondary to significant anterolisthesis of grade II, causing significant increase in risk of possible nerve injury or CSF leak. No complications met during the surgical procedure. Adding one hour additional to procedure SURGEON: Dr. Shubham Malik WHEEL SHOP SUPERVISOR: JOSE M Acuna FINDINGS: At the start of the surgical procedure, it was noted that the patient 's nerve root signals were down in amplitude at L5 on the left 50%, L5 on the right 20%, S1 on the left 40%, and both sides returned back to normal symmetric to the contralateral side at the conclusion of the procedure. BLOOD USAGE: None. IMPLANTS: [employer] 8-mm interbody cage, Orthofix screws x4, Fibergraft, NuShield, and bone OsteoSponge. ESTIMATED BLOOD LOSS: 150 mL. DRAINS: Hemovac and Guido. SPECIMENS: No disk material was removed from disk space due to a significant amount of disk degeneration. COMPLICATIONS: None. TYPE OF ANESTHESIA: General. ANESTHESIOLOGIST: Dr. Garibay BRIEF PREOPERATIVE HISTORY: The patient is a 61-year-old female who presented with significant symptoms of lower extremity radiculopathy secondary to grade II anterolisthesis of L5 on S1, with significant back pain as well. The patient has attempted multiple modalities of conservative management, with no improvement, and was consented and indicated for surgery as stated above, with all risks, benefits and alternatives discussed at length. The patient understood the risks, benefits, and alternatives, in addition to nonunion, nonfusion, failure of implants, and risks of bleeding, infection, and nerve injury, as well as CSF leak. The patient consented. OPERATION IN DETAIL: The patient was brought to the operating room and placed under anesthesia by Dr. Garibay and given 2 grams of Ancef. The patient was then turned prone on the David frame and all bony prominences were appropriately padded. Lumbar spine was prepped and draped in the usual sterile fashion. The incision was made after lateral localizing films verified the proper position of our incision line over the L5-S1 level. he central incision was made with subperiosteal dissection out the L5 lamina bilaterally to expose the anterolisthesis at the L5-S1 level. A central decompressive laminectomy was performed after removing the L5 spinous process and decompressing the exiting and traversing nerve roots. Due to the significant amount of listhesis there was a high risk of injury due to the nerve roots caught within the foramen. This was carefully dissected out and decompressed. During the surgical procedure a microscope was used for microdissection and nerve signals improved as the decompression was performed. Once performed the central decompressive laminectomy, fraying bilateral L5 and S1 nerve roots, we began with placing an interbody cage at the L5-S1 level while entering in with disk rebecca. Unfortunately no disk material was achieved because of a significant amount of degeneration. Once the interbody space was entered, we sized an 8-mm straight cage, measuring 23 mm in length, filled with Fibergraft. This was placed into the interbody cage and lateral localizing films verified proper position. Once concluded with the interbody cage placement and decompression of nerves we placed 4 screws at the L5-S1 level bilaterally. The L5 screws were measured a 5.5 mm x 40 mm and the S1 screws were measured at 6.5 mm x 30 mm. Once concluding with placement of screws they were tested and then 40-mm prelordotic rods were placed and secured with end caps and appropriately torqued. Increased complexity secondary to significant anterolisthesis of grade II, causing significant increase in risk of possible nerve injury or CSF leak. No complications met during the surgical procedure. Adding one hour additional to procedure Once concluded with the instrumentation and copious irrigation, we placed an epidural catheter, injected with Isovue for a lateral localizing epidurogram, then injecting 4 mL of 0.25% Marcaine and 100 mcg of fentanyl for postoperative analgesia, then removed the catheter. Bilateral posterolateral bone grafting was placed after high-speed bur decortication with bone graft in the posterolateral gutters bilaterally. A subfascial Hemovac drain was placed, size medium, and secured on the skin with #2 nylon. We started with our closure with #1 Vicryl for the fascia, 2-0 Vicryl for the subcutaneous closure, and 3-0 Monocryl for subcuticular closure, with Dermabond and clean and dry dressings placed over the wound, and the patient was then turned supine and taken to the recovery room in stable condition, moving the bilateral lower extremities with no complications met during the surgical procedure and approximately 150 mL of blood loss. The patient will be admitted for postop pain control, physical therapy, antibiotics, and discharged home when appropriate. Dictated By: SHUBHAM CLEMONS/LUCÍA Conf#: [id number] DID#: [id number] MTDD
[2016-10-21 16:00] LABS: CALCIUM 8.9 mg/dl (8.4-10.2); CREATININE 0.53 mg/dl (0.44-1.00)
[2016-10-21] MEDS: D5W-0.45 NACL + KCL 20 MEQ 1,000 ML IV SCH ×2 (16:59→20:14)
--- NOTE | 2016-10-21 18:12 | CONS ---
DATE OF ADMISSION: 10/21/2016 DATE OF CONSULTATION: 10/21/2016 REQUESTING PHYSICIAN: EDWARD EMERSON MD. REASON FOR CONSULTATION: Medical management. HISTORY OF PRESENT ILLNESS: This is a 61-year-old female with past medical history of hypertension, obesity, radiculopathy and hypothyroidism who has been having significant symptoms of lower extremi ty clubbing secondary to grade 2 of L5-S1 with significant back pain and she has attempted multiple modalities of conservative management with no improvement and was consulted and indicated for surger y. After discussing the risks and benefits and all the treatment, patient has decided to proceed wi th surgical intervention today on 10/21/2016 after signing the consent. The patient was taken to OR for central decompressive laminectomy of L5-S1 with removal spinous process and decompression of th e L5 and transversing S1 nerve root. The patient tolerated the procedure and was taken to recovery room and was admitted to med/surg where medicine team was consulted. At this time, patient is lying in bed comfortably without any distress. She has been placed on TANK BOTTOM ASSEMBLER pump. She denies any chest pa in, shortness of breath, nausea, vomiting, diarrhea. No headache, dizziness, numbness in her extrem ity. No abdominal pain, nausea, vomiting, diarrhea. No change in her sensory or motor in her upper or lower extremities. PAST MEDICAL AND SURGICAL HISTORY: 1. Hypertension. 2. Hypothyroidism. MEDICATIONS: 1. Protonix. 2. Levothyroxine. 3. Lisinopril. 4. Tramadol. ALLERGIES: NO KNOWN DRUG ALLERGIES. FAMILY HISTORY: Noncontributory. SOCIAL HISTORY: Negative x3 for smoking, alcohol, illicit drugs. Lives at home with her family. REVIEW OF SYSTEMS: As above per HPI, otherwise 12 review of systems found to be negative. PHYSICAL EXAMINATION: VITAL SIGNS: Temperature 98.2, pulse 88, respiration rate 16, blood pressure 152/70, oxygen 94% on 2 liters via nasal cannula. GENERAL APPEARANCE: The patient is lying in bed comfortably without acute distress. She is awake, alert, oriented. She is able to answer my questions properly. Body habitus morbidly obese with BMI of 34.7. EYES AND ENT: Conjunctivae and lids are normal. Pupils are normal. Extraocular normal. Hearing g rossly normal. Lips are normal. Oral mucosa is moist. NECK: Supple. Trachea is midline. No lymphadenopathy. RESPIRATORY: Effort is normal. Clear to auscultate bilaterally. CARDIOVASCULAR: Normal S1, S2. Regular rhythm and rate. No murmur, no bruits, no edema. Peripher al pulses and radial pulses palpable. Cap refill is normal. CHEST: Normal expansion of thorax during inspiration. GASTROINTESTINAL: Abdomen is soft, nontender, not distended. Bowel sounds present. No guarding, n o rebound. GENITOURINARY: Deferred. MUSCULOSKELETAL: Upper and lower extremities within normal limits. Full range of motion, strength 5/5 in both upper and lower extremities. NEUROLOGIC: Cranial nerves II through XII are grossly intact. PSYCHIATRIC: Normal judgment and insight. Alert and oriented x3. Mood and affect is normal. Lumbosacral drain in place and is intact. LABORATORY: WBC 10.0, hemoglobin 11.3, hematocrit 33.2, platelets 191. Sodium 142, potassium 4.0, chloride 105, bicarbonate 28, BUN 19, creatinine 0.53, glucose 153, calcium 8.9. ASSESSMENT AND PLAN: 1. L5-S1 spondylosis with listhesis grade 2 with bilateral foraminal stenosis of bilateral lower ex tremity radiculopathy, left greater than right. The patient is status post central decompressive la minectomy at L5-S1 with removal of spinous process decompressive___ L3-L5 transversing S1 nerve root . Continue postoperative drain care. TANK BOTTOM ASSEMBLER pump as per orthopedic surgeon recommendation and physica l therapy as per his recommendation. 2. Hypertension. Restart lisinopril. 3. Gastroesophageal reflux disease. Continue proton pump inhibitor. 4. Hypothyroidism. Continue levothyroxine. 5. Deep venous thrombosis prophylaxis on sequential compression devices. At this time, the patient does not qualify for any pharmacologic DVT prophylaxis secondary to lumbar surgery. 6. We will continue to monitor patient closely. Further recommendation and management per clinical course. Total time spent for evaluation of patient and consultation note 45 minutes. Dictated By: AMINTA SAWANT/LUCÍA Conf#: [id number] DID#: [id number]
[2016-10-21] MEDS: CEFAZOLIN 1 GM/50 ML (PMX) 50 ML IVPB SCH (18:16)
[2016-10-21] MEDS: DOCUSATE SODIUM 100 MG CAP PO SCH (20:14)
[2016-10-22 00:32] VITALS: BP 123/60; PULSE 93; RESP 18
[2016-10-22] MEDS: CEFAZOLIN 1 GM/50 ML (PMX) 50 ML IVPB SCH ×2 (03:03→10:17)
[2016-10-22] MEDS ORDERED: PANTOPRAZOLE (EC) 40 MG TAB PO SCH (06:00)
[2016-10-22] MEDS ORDERED: PANTOPRAZOLE 40 MG INJ IV SCH (06:00)
[2016-10-22 06:03] LABS: BASOPHILS % 0.2 % (0.0-2.0); EOSINOPHILS # 0.1 10^3/ul (0.0-0.5); EOSINOPHILS % 0.6 % (0.0-7.0); HEMATOCRIT 34.5 % (37.0-47.0); HEMOGLOBIN 12.1 g/dl (12.0-16.0); LYMPHOCYTES # 1.4 10^3/ul (0.8-2.9); LYMPHOCYTES % 11.8 % (15.0-51.0); MEAN CORPUSCULAR HEMOGLOBIN 29.7 pg (29.0-33.0); MEAN CORPUSCULAR HGB CONC 35.1 g/dl (32.0-37.0); MEAN CORPUSCULAR VOLUME 84.5 fl (82.0-101.0); MEAN PLATELET VOLUME 9.6 fl (7.4-10.4); MONOCYTE # 0.7 10^3/ul (0.3-0.9); MONOCYTES % 5.9 % (0.0-11.0); NEUTROPHIL # 9.9 10^3/ul (1.6-7.5); NEUTROPHILS % 81.5 % (39.0-77.0); PLATELET COUNT 204 10^3/UL (140-440); RED BLOOD COUNT 4.08 10^6/ul (4.20-5.40); RED CELL DISTRIBUTION WIDTH 13.7 % (11.5-14.5); UNCORRECTED WBC 12.2 10^3/ul (4.8-10.8); WHITE BLOOD COUNT 12.2 10^3/ul (4.8-10.8)
[2016-10-22 06:04] LABS: CONDITION 1
[2016-10-22] MEDS: LEVOTHYROXINE 137 MCG TAB PO SCH (06:05)
[2016-10-22] MEDS: D5W-0.45 NACL + KCL 20 MEQ 1,000 ML IV SCH ×2 (06:05→15:49)
[2016-10-22 06:34] LABS: POTASSIUM 4.3 mmol/L (3.5-5.1)
[2016-10-22 06:37] LABS: CREATININE 0.44 mg/dl (0.44-1.00)
[2016-10-22 06:38] LABS: CALCIUM 9.1 mg/dl (8.4-10.2); MAGNESIUM 1.8 mg/dl (1.7-2.5)
[2016-10-22] MEDS: LISINOPRIL 20 MG TAB PO SCH (08:52)
[2016-10-22] MEDS: DOCUSATE SODIUM 100 MG CAP PO SCH ×2 (08:52→20:26)
[2016-10-22] MEDS ORDERED: VITAMIN A & D 5 GM OINT PACKET TOP ONE (09:05)
--- NOTE | 2016-10-22 09:21 | PN ---
Date/Time of Note Date/Time of Note DATE: 10/22/16 TIME: 09:20 Assessment/Plan VTE Prophylaxis VTE Prophylaxis Intervention: SCD's Lines/Catheters IV Catheter Type (from Nrsg): Peripheral IV Urinary Cath still in place: Yes Reason Cath still needed: other (indicate) Assessment/Plan Chief Complaint/Hosp Course ASSESSMENT AND PLAN: 1. L5-S1 spondylosis with listhesis grade 2 with bilateral foraminal stenosis of bilateral lower extremity radiculopathy, left greater than right. The patient is status post central decompressive laminectomy at L5-S1 Continue postoperative drain care. Status post COMPLIANCE COORDINATOR pump as per orthopedic surgeon recommendation and physical therapy as per his recommendation. 2. Hypertension. Continue lisinopril. 3. Gastroesophageal reflux disease. Continue proton pump inhibitor. 4. Hypothyroidism. Continue levothyroxine. 5. Deep venous thrombosis prophylaxis on sequential compression devices. At this time, the patient does not qualify for any pharmacologic DVT prophylaxis secondary to lumbar surgery. We will continue to monitor patient closely. Further recommendation and management per clinical course. Problems: Subjective 24 Hr Interval Summary Free Text/Dictation Denies of any chest pain or shortness of breath No nausea vomiting diarrhea Minimal back pain Exam/Review of Systems Vital Signs Vitals Vital Signs Date Time Temp Pulse Resp B/P Pulse Ox O2 Delivery O2 Flow Rate FiO2 10/22/16 04:45 18 10/22/16 00:32 98.0 93 123/60 98 Nasal Cannula 2.0 Intake and Output 10/21/16 10/21/16 10/22/16 15:00 23:00 07:00 Intake Total 2000 ml 300 ml Output Total 755 ml 500 ml 800 ml Balance 1245 ml -500 ml -500 ml Exam General: The patient is morbidly obese, Not in acute distress. HEENT: Atraumatic, normocephalic. The pupils are equal and round . Neck: Supple with full range of motion. Chest: Normal expansion of the thorax during inspiration Lungs: Clear to auscultation bilaterally Heart: Normal S1-S2, Regular rhythm and rate. Abdomen: Soft , nontender, nondistended , bowel sounds are present. Extremities: Normal to inspection, no edema no cyanosis Neurologic: Normal mental status,The patient is awake, alert and oriented . Results Result Diagram: 10/22/16 04210/[id number] Results 24 hrs Laboratory Tests Test 10/21/16 15:05 10/22/16 04:21 Anion Gap 13 18 H Basophils # 0.0 0.0 Basophils % 0.3 0.2 Blood Urea Nitrogen 19 12 Calcium Level 8.9 9.1 Carbon Dioxide Level 28 24 Chloride Level 105 101 Creatinine 0.53 0.44 Eosinophils # 0.0 0.1 Eosinophils % 0.4 0.6 Glucose Level 135 120 Hematocrit 33.2 L 34.5 L Hemoglobin 11.7 L 12.1 Lymphocytes # 2.2 1.4 Lymphocytes % 21.8 11.8 L Mean Corpuscular Hemoglobin 29.6 29.7 Mean Corpuscular Hemoglobin Concent 35.2 35.1 Mean Corpuscular Volume 84.0 84.5 Mean Platelet Volume 8.3 9.6 Monocytes # 0.4 0.7 Monocytes % 4.3 5.9 Neutrophils # 7.3 9.9 H Neutrophils % 73.2 81.5 H Nucleated Red Blood Cells # 0.0 0.0 Nucleated Red Blood Cells % 0.0 0.0 Platelet Count 191 204 Potassium Level 4.0 4.3 Red Blood Count 3.95 L 4.08 L Red Cell Distribution Width 13.4 13.7 Sodium Level 142 139 White Blood Count 10.0 12.2 #H Magnesium Level 1.8 Medications Medications Current Medications Influenza Virus Vaccine 0.5 ml 0.5 ml ONCE ONCE IM* ; Start 10/23/16 at 09:00; Stop 10/23/16 at 09:01 Potassium Chloride/Dextrose/ Sod Cl (D5-1/2ns + KCl 20 Meq) 1,000 ml @ 100 mls/ hr Q10H IV Last administered on 10/22/16t 06:05; Admin Dose 100 MLS/HR; Start 10/21/16 at 10:07 Acetaminophen/ Hydrocodone Bitart ([place]ents (5/325)) 1 tab Q4H PRN PO PAIN LEVEL 1 -5; Start 10/22/16 at 10:30 Acetaminophen/ Hydrocodone Bitart ([place] (5/325)) 2 tab Q4H PRN PO PAIN LEVEL 6 -10; Start 10/22/16 at 10:30 Hydromorphone HCl (Dilaudid) 0.2 mg Q3H PRN IV BREAKTHROUGH PAIN; Start at 10:30 Ondansetron HCl (Zofran Inj) 4 mg Q6H PRN IV NAUSEA AND/OR VOMITING Last administered on 10/21/16 21:12; Admin Dose 4 MG; Start 10/21/16 at 10:30 Prochlorperazine (Compazine Inj) 10 mg Q6H PRN IV NAUSEA AND/OR VOMITING; Start 10/21/16 at 10:30 Docusate Sodium (Colace) 100 mg BID PO Last administered on 10/22/16 08:52; Admin Dose 100 MG; Start 10/21/16 at 21:00 Pantoprazole (Protonix Iv) 40 mg DAILY@06 IV Last administered on 10/22/16 06: 05; Admin Dose 40 MG; Start 10/22/16 at 06:00 Al Hydrox/Mg Hydrox/Simethicone (Mag-Al Plus) 15 ml Q6H PRN PO CONSTIPATION/ DYSPEPSIA; Start 10/21/16 at 10:30 Acetaminophen (Tylenol Tab) 650 mg Q4H PRN PO ROSAS OR TEMP GREATER THAN 101.3F; Start 10/21/16 at 10:30 Cyclobenzaprine HCl (Flexeril) 5 mg TID PRN PO MUSCLE SPASMS; Start 10/21/16 at 10:30 Phenol (Cepastat Lozenge) 1 lozenge PRN PRN MT SORE THROAT; Start 10/21/16 at 10:30 Diphenhydramine HCl (Benadryl) 25 mg Q6H PRN PO ITCHING; Start 10/21/16 at 10: 30 Diphenhydramine HCl (Benadryl) 25 mg Q6H PRN IV ITCHING; Start 10/21/16 at 10: 30 Naloxone HCl (Narcan) 0.2 mg Q2M PRN IV RR 8 BREATHS/MIN OR LESS; Start at 10:30 Hydromorphone HCl (Dilaudid COMPLIANCE COORDINATOR) COMPLIANCE COORDINATOR to be started in PACU Q4PCA IV Last administered on 10/21/16 15:03; Admin Dose 6 MG; Start 10/21/16 at 10:30 Miscellaneous Information 1. Hold COMPLIANCE COORDINATOR at 1,000... COMPLIANCE COORDINATOR IV ; Start 10/21/16 at 10: 30 Cefazolin Sodium (Ancef 1 Gm/50 ml (Pmx)) 50 ml @ 100 mls/hr Q8H IVPB Last administered on 10/22/16 03:03; Admin Dose 100 MLS/HR; Start 10/21/16 at 18:30 ; Stop 10/22/16 at 10:59 Lisinopril (Zestril) 40 mg DAILY PO Last administered on 10/22/16 08:52; Admin Dose 40 MG; Start 10/22/16 at 09:00 Pantoprazole (Protonix Tab) 40 mg DAILY@06 PO ; Start 10/22/16 at 06:00; Status Future Hold Tramadol HCl (Ultram) 50 mg BID PRN PO PAIN; Start 10/21/16 at 17:00 Hydralazine HCl (Apresoline) 10 mg Q6H PRN IV HIGH BP Last administered on 10/21 20:14; Admin Dose 10 MG; Start 10/21/16 at 18:30 AMINTA MATUTE MD Oct 22, 2016 09:21
[2016-10-22] MEDS: HYDROCODONE/APAP (5/325) TAB PO PRN ×2 (10:18→20:26)
[2016-10-22] MEDS ORDERED: HYDROCODONE/APAP (5/325) TAB PO PRN (10:30)
--- NOTE | 2016-10-22 13:05 | PN ---
Date/Time of Note Date/Time of Note DATE: 10/22/16 TIME: 13:03 Assessment/Plan VTE Prophylaxis VTE Prophylaxis Intervention: SCD's VTE Contraindication Reason: bleeding Lines/Catheters IV Catheter Type (from Nrsg): Peripheral IV Urinary Cath still in place: No Assessment/Plan Chief Complaint/Hosp Course s/p lumbar L5-S1 fusion Problems: Assessment/Plan ASSURANCE SOURCING MANAGER DC'd Guido DC'd Dressing changed Hemovac DC'd Pain controlled with PO pain meds Wound without erythema or discharge Needs to ambulate with PT [facility] SNF if not progressing, otherwise DC home. Exam/Review of Systems Vital Signs Vitals Vital Signs Date Time Temp Pulse Resp B/P Pulse Ox O2 Delivery O2 Flow Rate FiO2 10/22/16 04:45 18 10/22/16 00:32 98.0 93 123/60 98 Nasal Cannula 2.0 Intake and Output 10/21/16 10/21/16 10/22/16 15:00 23:00 07:00 Intake Total 2000 ml 300 ml Output Total 755 ml 500 ml 800 ml Balance 1245 ml -500 ml -500 ml Results Result Diagram: 10/22/16 0421 10/22/16 0421 Results 24 hrs Laboratory Tests Test 10/21/16 15:05 10/22/16 04:21 Anion Gap 13 18 H Basophils # 0.0 0.0 Basophils % 0.3 0.2 Blood Urea Nitrogen 19 12 Calcium Level 8.9 9.1 Carbon Dioxide Level 28 24 Chloride Level 105 101 Creatinine 0.53 0.44 Eosinophils # 0.0 0.1 Eosinophils % 0.4 0.6 Glucose Level 135 120 Hematocrit 33.2 L 34.5 L Hemoglobin 11.7 L 12.1 Lymphocytes # 2.2 1.4 Lymphocytes % 21.8 11.8 L Mean Corpuscular Hemoglobin 29.6 29.7 Mean Corpuscular Hemoglobin Concent 35.2 35.1 Mean Corpuscular Volume 84.0 84.5 Mean Platelet Volume 8.3 9.6 Monocytes # 0.4 0.7 Monocytes % 4.3 5.9 Neutrophils # 7.3 9.9 H Neutrophils % 73.2 81.5 H Nucleated Red Blood Cells # 0.0 0.0 Nucleated Red Blood Cells % 0.0 0.0 Platelet Count 191 204 Potassium Level 4.0 4.3 Red Blood Count 3.95 L 4.08 L Red Cell Distribution Width 13.4 13.7 Sodium Level 142 139 White Blood Count 10.0 12.2 #H Magnesium Level 1.8 Medications Medications Current Medications Influenza Virus Vaccine 0.5 ml 0.5 ml ONCE ONCE IM* ; Start 10/23/16 at 09:00; Stop 10/23/16 at 09:01 Potassium Chloride/Dextrose/ Sod Cl (D5-1/2ns + KCl 20 Meq) 1,000 ml @ 100 mls/ hr Q10H IV Last administered on 10/22/16 06:05; Admin Dose 100 MLS/HR; Start 10/21/16 at 10:07 Acetaminophen/ Hydrocodone Bitart ([place] (5/325)) 1 tab Q4H PRN PO PAIN LEVEL 1 -5; Start 10/22/16 at 10:30 Acetaminophen/ Hydrocodone Bitart ([place] (5/325)) 2 tab Q4H PRN PO PAIN LEVEL 6 -10 Last administered on 10/22/16 10:18; Admin Dose 2 TAB; Start 10/22/16 at 10 :30 Hydromorphone HCl (Dilaudid) 0.2 mg Q3H PRN IV BREAKTHROUGH PAIN; Start at 10:30 Ondansetron HCl (Zofran Inj) 4 mg Q6H PRN IV NAUSEA AND/OR VOMITING Last administered on 10/21/16 21:12; Admin Dose 4 MG; Start 10/21/16 at 10:30 Prochlorperazine (Compazine Inj) 10 mg Q6H PRN IV NAUSEA AND/OR VOMITING; Start 10/21/16 at 10:30 Docusate Sodium (Colace) 100 mg BID PO Last administered on 10/22/16 08:52; Admin Dose 100 MG; Start 10/21/16 at 21:00 Pantoprazole (Protonix Iv) 40 mg DAILY@06 IV Last administered on 10/22/16 06: 05; Admin Dose 40 MG; Start 10/22/16 at 06:00 Al Hydrox/Mg Hydrox/Simethicone (Mag-Al Plus) 15 ml Q6H PRN PO CONSTIPATION/ DYSPEPSIA; Start 10/21/16 at 10:30 Acetaminophen (Tylenol Tab) 650 mg Q4H PRN PO ROSAS OR TEMP GREATER THAN 101.3F; Start 10/21/16 at 10:30 Cyclobenzaprine HCl (Flexeril) 5 mg TID PRN PO MUSCLE SPASMS; Start 10/21/16 at 10:30 Phenol (Cepastat Lozenge) 1 lozenge PRN PRN MT SORE THROAT; Start 10/21/16 at 10:30 Diphenhydramine HCl (Benadryl) 25 mg Q6H PRN PO ITCHING; Start 10/21/16 at 10: 30 Diphenhydramine HCl (Benadryl) 25 mg Q6H PRN IV ITCHING; Start 10/21/16 at 10: 30 Naloxone HCl (Narcan) 0.2 mg Q2M PRN IV RR 8 BREATHS/MIN OR LESS; Start at 10:30 Hydromorphone HCl (Dilaudid ASSURANCE SOURCING MANAGER) ASSURANCE SOURCING MANAGER to be started in PACU Q4PCA IV Last administered on 10/21/16 15:03; Admin Dose 6 MG; Start 10/21/16 at 10:30 Miscellaneous Information 1. Hold ASSURANCE SOURCING MANAGER at 1,000... ASSURANCE SOURCING MANAGER IV ; Start 10/21/16 at 10: 30 Lisinopril (Zestril) 40 mg DAILY PO Last administered on 10/22/16 08:52; Admin Dose 40 MG; Start 10/22/16 at 09:00 Pantoprazole (Protonix Tab) 40 mg DAILY@06 PO ; Start 10/22/16 at 06:00; Status Future Hold Tramadol HCl (Ultram) 50 mg BID PRN PO PAIN; Start 10/21/16 at 17:00 Hydralazine HCl (Apresoline) 10 mg Q6H PRN IV HIGH BP Last administered on 10/21 20:14; Admin Dose 10 MG; Start 10/21/16 at 18:30 EDWARD EMERSON MD Oct 22, 2016 13:05
[2016-10-22 19:36] VITALS: BP 136/61; RESP 22
[2016-10-22 21:00] VITALS: BP 126/79; PULSE 88
[2016-10-23] MEDS: D5W-0.45 NACL + KCL 20 MEQ 1,000 ML IV SCH ×3 (02:07→22:07)
[2016-10-23] MEDS: HYDROCODONE/APAP (5/325) TAB PO PRN ×3 (04:32→15:44)
[2016-10-23] MEDS: LEVOTHYROXINE 137 MCG TAB PO SCH (05:13)
[2016-10-23] MEDS: PANTOPRAZOLE (EC) 40 MG TAB PO SCH (05:14)
[2016-10-23 06:41] LABS: POTASSIUM 3.9 mmol/L (3.5-5.1)
[2016-10-23 06:44] LABS: CREATININE 0.53 mg/dl (0.44-1.00)
[2016-10-23 07:16] LABS: BASOPHILS % 0.3 % (0.0-2.0); EOSINOPHILS % 0.4 % (0.0-7.0); HEMATOCRIT 32.5 % (37.0-47.0); HEMOGLOBIN 11.4 g/dl (12.0-16.0); LYMPHOCYTES # 1.2 10^3/ul (0.8-2.9); LYMPHOCYTES % 10.3 % (15.0-51.0); MEAN CORPUSCULAR HEMOGLOBIN 29.7 pg (29.0-33.0); MEAN CORPUSCULAR VOLUME 84.8 fl (82.0-101.0); MEAN PLATELET VOLUME 9.7 fl (7.4-10.4); MONOCYTES % 8.5 % (0.0-11.0); NEUTROPHIL # 9.7 10^3/ul (1.6-7.5); NEUTROPHILS % 80.5 % (39.0-77.0); PLATELET COUNT 169 10^3/UL (140-440); RED BLOOD COUNT 3.83 10^6/ul (4.20-5.40); UNCORRECTED WBC 12.1 10^3/ul (4.8-10.8); WHITE BLOOD COUNT 12.1 10^3/ul (4.8-10.8)
[2016-10-23 07:20] LABS: CONDITION 1
[2016-10-23 07:46] VITALS: BP 134/64; RESP 18
[2016-10-23] MEDS ORDERED: INFLUENZA VIRUS VACCINE 0.5 ML (DISPENSING) IM* ONE (09:00)
[2016-10-23] MEDS: DOCUSATE SODIUM 100 MG CAP PO SCH ×2 (09:47→20:58)
[2016-10-23] MEDS: LISINOPRIL 20 MG TAB PO SCH (09:48)
--- NOTE | 2016-10-23 10:08 | PN ---
Date/Time of Note Date/Time of Note DATE: 10/23/16 TIME: 10:05 Assessment/Plan VTE Prophylaxis VTE Prophylaxis Intervention: SCD's Lines/Catheters IV Catheter Type (from Nrs): Peripheral IV Urinary Cath still in place: No Assessment/Plan Chief Complaint/Hosp Course ASSESSMENT AND PLAN: 1. L5-S1 spondylosis with listhesis grade 2 with bilateral foraminal stenosis of bilateral lower extremity radiculopathy, left greater than right. The patient is status post central decompressive laminectomy at L5-S1 Continue postoperative drain care. Status post COMBINER OPERATOR pump as per orthopedic surgeon recommendation and physical therapy as per his recommendation. 2. Hypertension. Continue lisinopril. 3. Gastroesophageal reflux disease. Continue proton pump inhibitor. 4. Hypothyroidism. Continue levothyroxine. 5. Leukocytosis. Likely steroid-induced, start the patient on prophylactic IV antibiotic and recommend to discharge on Keflex 5. Deep venous thrombosis prophylaxis on sequential compression devices. At this time, the patient does not qualify for any pharmacologic DVT prophylaxis secondary to lumbar surgery. As per medical standpoint patient is clear for discharge with oral antibiotics with a close follow up with her PCP and orthopedic surgeon Physical therapy as per orthopedic surgeon recommendation Problems: Subjective 24 Hr Interval Summary Free Text/Dictation Denies any chest pain or shortness of breath Minimal back discomfort Tolerating oral intake Ambulate with minimal assist Exam/Review of Systems Vital Signs Vitals Vital Signs Date Time Temp Pulse Resp B/P Pulse Ox O2 Delivery O2 Flow Rate FiO2 10/23/16 07:46 98.6 84 18 134/64 92 10/22/16 00:32 Nasal Cannula 2.0 Intake and Output 10/22/16 10/22/16 10/23/16 15:00 23:00 07:00 Intake Total 1940 ml 1200 ml Output Total 1250 ml Balance 690 ml 1200 ml Exam General: The patient is morbidly obese, Not in acute distress. HEENT: Atraumatic, normocephalic. The pupils are equal and round . Neck: Supple with full range of motion. Chest: Normal expansion of the thorax during inspiration Lungs: Clear to auscultation bilaterally Heart: Normal S1-S2, Regular rhythm and rate. Abdomen: Soft , nontender, nondistended , bowel sounds are present. Extremities: Normal to inspection, no edema no cyanosis Neurologic: Normal mental status,The patient is awake, alert and oriented . Results Result Diagram: 10/23/16 0441 10/23/16 0516 Results 24 hrs Laboratory Tests Test 10/23/16 04:41 10/23/16 05:16 Basophils # 0.0 Basophils % 0.3 Eosinophils # 0.0 Eosinophils % 0.4 Hematocrit 32.5 L Hemoglobin 11.4 L Lymphocytes # 1.2 Lymphocytes % 10.3 L Mean Corpuscular Hemoglobin 29.7 Mean Corpuscular Hemoglobin Concent 35.0 Mean Corpuscular Volume 84.8 Mean Platelet Volume 9.7 Monocytes # 1.0 H Monocytes % 8.5 Neutrophils # 9.7 H Neutrophils % 80.5 H Nucleated Red Blood Cells # 0.0 Nucleated Red Blood Cells % 0.0 Platelet Count 169 Red Blood Count 3.83 L Red Cell Distribution Width 14.0 White Blood Count 12.1 H Anion Gap 14 Blood Urea Nitrogen 10 Calcium Level 9.0 Carbon Dioxide Level 30 Chloride Level 101 Creatinine 0.53 Glucose Level 117 Potassium Level 3.9 Sodium Level 141 Medications Medications Current Medications Potassium Chloride/Dextrose/ Sod Cl (D5-1/2ns + KCl 20 Meq) 1,000 ml @ 100 mls/ hr Q10H IV Last administered on 10/22/16 06:05; Admin Dose 100 MLS/HR; Start 10/21/16 at 10:07 Acetaminophen/ Hydrocodone Bitart ([place] (5/325)) 1 tab Q4H PRN PO PAIN LEVEL 1 -5; Start 10/22/16 at 10:30 Acetaminophen/ Hydrocodone Bitart ([place] (5/325)) 2 tab Q4H PRN PO PAIN LEVEL 6 -10 Last administered on 10/23/16 04:32; Admin Dose 2 TAB; Start 10/22/16 at 10 :30 Hydromorphone HCl (Dilaudid) 0.2 mg Q3H PRN IV BREAKTHROUGH PAIN; Start at 10:30 Ondansetron HCl (Zofran Inj) 4 mg Q6H PRN IV NAUSEA AND/OR VOMITING Last administered on 10/21/16 21:12; Admin Dose 4 MG; Start 10/21/16 at 10:30 Prochlorperazine (Compazine Inj) 10 mg Q6H PRN IV NAUSEA AND/OR VOMITING; Start 10/21/16 at 10:30 Docusate Sodium (Colace) 100 mg BID PO Last administered on 10/23/16 09:47; Admin Dose 100 MG; Start 10/21/16 at 21:00 Al Hydrox/Mg Hydrox/Simethicone (Mag-Al Plus) 15 ml Q6H PRN PO CONSTIPATION/ DYSPEPSIA; Start 10/21/16 at 10:30 Acetaminophen (Tylenol Tab) 650 mg Q4H PRN PO ROSAS OR TEMP GREATER THAN 101.3F; Start 10/21/16 at 10:30 Cyclobenzaprine HCl (Flexeril) 5 mg TID PRN PO MUSCLE SPASMS; Start 10/21/16 at 10:30 Phenol (Cepastat Lozenge) 1 lozenge PRN PRN MT SORE THROAT; Start 10/21/16 at 10:30 Diphenhydramine HCl (Benadryl) 25 mg Q6H PRN PO ITCHING; Start 10/21/16 at 10: 30 Diphenhydramine HCl (Benadryl) 25 mg Q6H PRN IV ITCHING; Start 10/21/16 at 10: 30 Naloxone HCl (Narcan) 0.2 mg Q2M PRN IV RR 8 BREATHS/MIN OR LESS; Start at 10:30 Hydromorphone HCl (Dilaudid COMBINER OPERATOR) COMBINER OPERATOR to be started in PACU Q4PCA IV Last administered on 10/21/16 15:03; Admin Dose 6 MG; Start 10/21/16 at 10:30 Miscellaneous Information 1. Hold COMBINER OPERATOR at 1,000... COMBINER OPERATOR IV ; Start 10/21/16 at 10: 30 Lisinopril (Zestril) 40 mg DAILY PO Last administered on 10/23/16 09:48; Admin Dose 40 MG; Start 10/22/16 at 09:00 Tramadol HCl (Ultram) 50 mg BID PRN PO PAIN; Start 10/21/16 at 17:00 Hydralazine HCl (Apresoline) 10 mg Q6H PRN IV HIGH BP Last administered on 10/21 20:14; Admin Dose 10 MG; Start 10/21/16 at 18:30 Pantoprazole (Protonix Tab) 40 mg DAILY@06 PO Last administered on 10/23/16 05 :14; Admin Dose 40 MG; Start 10/23/16 at 06:00 AMINTA MATUTE MD Oct 23, 2016 10:08
[2016-10-23] MEDS: CEFTRIAXONE 1 GM/50 ML (PMX) 50 ML IVPB SCH (12:04)
--- NOTE | 2016-10-23 12:09 | PN ---
Date/Time of Note Date/Time of Note DATE: 10/23/16 TIME: 12:06 Assessment/Plan VTE Prophylaxis VTE Prophylaxis Intervention: ambulation, SCD's VTE Contraindication Reason: bleeding Lines/Catheters IV Catheter Type (from Nrsg): Peripheral IV Urinary Cath still in place: No Assessment/Plan Chief Complaint/Hosp Course s/p lumbar L5-S1 fusion Problems: Assessment/Plan Patient progressing slowly. Minimal ambulation One fever spike, WBC 12.1 Wound CDI gross motor/sensory intact to bilateral LE SCD in place Calf soft NT/ND Anterior thigh pain bilaterally, most likely positioning in prone position Incisiinal back pain Plan SNF vs. Home tomorrow [employer] Crew[employer] to discuss with patient for planning to transfer tomorrow Cont'd Hospitalization Reason: pain control, PT for ambulation and SNF vs. Home placement Subjective 24 Hr Interval Summary Musculoskeletal: back pain (incisional) Additional Comments some bilateral anterior thigh pain Exam/Review of Systems Vital Signs Vitals Vital Signs Date Time Temp Pulse Resp B/P Pulse Ox O2 Delivery O2 Flow Rate FiO2 10/23/16 07:46 98.6 84 18 134/64 92 10/22/16 00:32 Nasal Cannula 2.0 Intake and Output 10/22/16 10/22/16 10/23/16 15:00 23:00 07:00 Intake Total 1940 ml 1200 ml Output Total 1250 ml Balance 690 ml 1200 ml Results Result Diagram: 10/23/16 0441 10/23/16 0516 Results 24 hrs Laboratory Tests Test 10/23/16 04:41 10/23/16 05:16 Basophils # 0.0 Basophils % 0.3 Eosinophils # 0.0 Eosinophils % 0.4 Hematocrit 32.5 L Hemoglobin 11.4 L Lymphocytes # 1.2 Lymphocytes % 10.3 L Mean Corpuscular Hemoglobin 29.7 Mean Corpuscular Hemoglobin Concent 35.0 Mean Corpuscular Volume 84.8 Mean Platelet Volume 9.7 Monocytes # 1.0 H Monocytes % 8.5 Neutrophils # 9.7 H Neutrophils % 80.5 H Nucleated Red Blood Cells # 0.0 Nucleated Red Blood Cells % 0.0 Platelet Count 169 Red Blood Count 3.83 L Red Cell Distribution Width 14.0 White Blood Count 12.1 H Anion Gap 14 Blood Urea Nitrogen 10 Calcium Level 9.0 Carbon Dioxide Level 30 Chloride Level 101 Creatinine 0.53 Glucose Level 117 Potassium Level 3.9 Sodium Level 141 Medications Medications Current Medications Potassium Chloride/Dextrose/ Sod Cl (D5-1/2ns + KCl 20 Meq) 1,000 ml @ 100 mls/ hr Q10H IV Last administered on 10/22/16 06:05; Admin Dose 100 MLS/HR; Start 10/21/16 at 10:07 Acetaminophen/ Hydrocodone Bitart ([place] (5/325)) 1 tab Q4H PRN PO PAIN LEVEL 1 -5; Start 10/22/16 at 10:30 Acetaminophen/ Hydrocodone Bitart ([place] (5/325)) 2 tab Q4H PRN PO PAIN LEVEL 6 -10 Last administered on 10/23/16 11:23; Admin Dose 2 TAB; Start 10/22/16 at 10 :30 Hydromorphone HCl (Dilaudid) 0.2 mg Q3H PRN IV BREAKTHROUGH PAIN; Start at 10:30 Ondansetron HCl (Zofran Inj) 4 mg Q6H PRN IV NAUSEA AND/OR VOMITING Last administered on 10/21/16 21:12; Admin Dose 4 MG; Start 10/21/16 at 10:30 Prochlorperazine (Compazine Inj) 10 mg Q6H PRN IV NAUSEA AND/OR VOMITING; Start 10/21/16 at 10:30 Docusate Sodium (Colace) 100 mg BID PO Last administered on 10/23/16 09:47; Admin Dose 100 MG; Start 10/21/16 at 21:00 Al Hydrox/Mg Hydrox/Simethicone (Mag-Al Plus) 15 ml Q6H PRN PO CONSTIPATION/ DYSPEPSIA; Start 10/21/16 at 10:30 Acetaminophen (Tylenol Tab) 650 mg Q4H PRN PO ROSAS OR TEMP GREATER THAN 101.3F; Start 10/21/16 at 10:30 Cyclobenzaprine HCl (Flexeril) 5 mg TID PRN PO MUSCLE SPASMS; Start 10/21/16 at 10:30 Phenol (Cepastat Lozenge) 1 lozenge PRN PRN MT SORE THROAT; Start 10/21/16 at 10:30 Diphenhydramine HCl (Benadryl) 25 mg Q6H PRN PO ITCHING; Start 10/21/16 at 10: 30 Diphenhydramine HCl (Benadryl) 25 mg Q6H PRN IV ITCHING; Start 10/21/16 at 10: 30 Naloxone HCl (Narcan) 0.2 mg Q2M PRN IV RR 8 BREATHS/MIN OR LESS; Start at 10:30 Hydromorphone HCl (Dilaudid PRINCIPAL AUTOMATION ENGINEER) PRINCIPAL AUTOMATION ENGINEER to be started in PACU Q4PCA IV Last administered on 10/21/16 15:03; Admin Dose 6 MG; Start 10/21/16 at 10:30 Miscellaneous Information 1. Hold PRINCIPAL AUTOMATION ENGINEER at 1,000... PRINCIPAL AUTOMATION ENGINEER IV ; Start 10/21/16 at 10: 30 Lisinopril (Zestril) 40 mg DAILY PO Last administered on 10/23/16 09:48; Admin Dose 40 MG; Start 10/22/16 at 09:00 Tramadol HCl (Ultram) 50 mg BID PRN PO PAIN; Start 10/21/16 at 17:00 Hydralazine HCl (Apresoline) 10 mg Q6H PRN IV HIGH BP Last administered on 10/21 20:14; Admin Dose 10 MG; Start 10/21/16 at 18:30 Pantoprazole 40 mg 40 mg DAILY@06 PO Last administered on 10/23/16 05:14; Admin Dose 40 MG; Start 10/23/16 at 06:00 Ceftriaxone Sodium (Rocephin) 50 ml @ 100 mls/hr Q24H IVPB Last administered on 10/23/16 12:04; Admin Dose 100 MLS/HR; Start 10/23/16 at 10:30 EDWARD EMERSON MD Oct 23, 2016 12:09
[2016-10-23] MEDS: traMADol 50 MG TAB PO PRN (18:36)
[2016-10-23 20:03] VITALS: BP 121/59; RESP 18
[2016-10-24] MEDS: PANTOPRAZOLE (EC) 40 MG TAB PO SCH (06:15)
[2016-10-24] MEDS: LEVOTHYROXINE 137 MCG TAB PO SCH (06:15)
--- NOTE | 2016-10-24 07:30 | PDOCDIS ---
Discharge Instructions CONDITION Patient Condition: Good HOME CARE INSTRUCTIONS: Diet Instructions: RegularSpecial Diet: low fat,low cholesterol, 2 gm NA ACTIVITY: Activity Restrictions: Avoid heavy lifting (No Bending lifting or twisting. Wear brace when out of bed and walking. Remove brace in bed) Do not Drive Bathing Restrictions: no submersing in water FOLLOW UP/APPOINTMENTS Appointments Call office for appointment REFERRALS Other Referrals Home Health to be arranged by EDWARD Newsome MD Oct 24, 2016 07:30
--- NOTE | 2016-10-24 07:35 | DS ---
Date/Time of Note Date/Time of Note DATE: 10/24/16 TIME: 07:33 Discharge Summary Admission/Discharge Info Admit Date/Time Oct 21, 2016 at 08:11 Discharge Date/Time Oct 24 Final Diagnosis s/p L5-S1 posterior lumbar interbody fusion Patient Condition: Good Consults Hospitalist. Dr. Turner Procedures L5-S1 fusion Hx of Present Illness 61 yo admitted for surgery stated above. Progressed well with PT and PO pain meds. Wound CDI. Gross motor sensory intact to b/l LE. Calf soft, NT/ND Hospital Course ASSESSMENT AND PLAN: 1. L5-S1 spondylosis with listhesis grade 2 with bilateral foraminal stenosis of bilateral lower extremity radiculopathy, left greater than right. The patient is status post central decompressive laminectomy at L5-S1 Continue postoperative drain care. Status post INTERNAL COMMUNICATIONS MANAGER pump as per orthopedic surgeon recommendation and physical therapy as per his recommendation. 2. Hypertension. Continue lisinopril. 3. Gastroesophageal reflux disease. Continue proton pump inhibitor. 4. Hypothyroidism. Continue levothyroxine. 5. Leukocytosis. Likely steroid-induced, start the patient on prophylactic IV antibiotic and recommend to discharge on Keflex 5. Deep venous thrombosis prophylaxis on sequential compression devices. At this time, the patient does not qualify for any pharmacologic DVT prophylaxis secondary to lumbar surgery. As per medical standpoint patient is clear for discharge with oral antibiotics with a close follow up with her PCP and orthopedic surgeon Physical therapy as per orthopedic surgeon recommendation Home Meds Active Scripts Tramadol HCl (Tramadol HCl) 50 Mg Tab, 50 MG PO BID, #30 TAB Prov:CLAIRE LINO 10/04/16 Reported Medications Levothyroxine Sodium* (Levothyroxine Sodium*) 137 Mcg Tablet, 137 MCG PO BEFORE BREAKFAST, #30 TAB 10/21/16 Pantoprazole* (Pantoprazole*) 40 Mg Tablet.dr, 40 MG PO DAILY, TAB 10/21/16 Lisinopril* (Lisinopril*) 40 Mg Tablet, 40 MG PO DAILY, TAB 08/03/15 Discontinued Reported Medications Meloxicam* (Meloxicam*) 7.5 Mg/5 Ml Oral.susp, 15 MG PO DAILY, ML 08/03/15 Amlodipine Besylate* (Amlodipine Besylate*) 10 Mg Tablet, 10 MG PO DAILY, TAB 08/03/15 Aspirin* (Aspirin* EC) 81 Mg Tablet., 81 MG PO DAILY, TAB 11/27/14 Discontinued Scripts Lisinopril* (Lisinopril*) 20 Mg Tablet, 40 MG PO DAILY for 30 Days, TAB Prov:CLAIRE LINO 10/04/16 Esomeprazole Mag Trihydrate (Nexium) 40 Mg Capsule., 40 MG PO DAILY, #30 CAP Prov:CLAIRE LINO 10/04/16 Follow-up Plan call office for appt Pending Labs no labs pending EDWARD EMERSON MD Oct 24, 2016 07:35
[2016-10-24] MEDS: HYDROCODONE/APAP (5/325) TAB PO PRN ×2 (07:50→15:24)
[2016-10-24] MEDS: D5W-0.45 NACL + KCL 20 MEQ 1,000 ML IV SCH (08:07)
[2016-10-24 08:13] VITALS: BP 145/65; RESP 18
[2016-10-24] MEDS: DOCUSATE SODIUM 100 MG CAP PO SCH (09:09)
[2016-10-24] MEDS: LISINOPRIL 20 MG TAB PO SCH (09:10)
[2016-10-24] MEDS: CEFTRIAXONE 1 GM/50 ML (PMX) 50 ML IVPB SCH (09:13)
[2016-10-24] MEDS: traMADol 50 MG TAB PO PRN (09:13)
--- NOTE | 2016-10-24 15:58 | PN ---
Date/Time of Note Date/Time of Note DATE: 10/24/16 TIME: 15:54 Assessment/Plan VTE Prophylaxis VTE Prophylaxis Intervention: SCD's Lines/Catheters IV Catheter Type (from Nrs): Peripheral IV Urinary Cath still in place: No Assessment/Plan Chief Complaint/Hosp Course Assessment and plan 1. L5-S1 spondylosis with listhesis grade 2 with bilateral foraminal stenosis of bilateral lower extremity radiculopathy, left greater than right. Patient is status post orthopedic intervention with central decompressive laminectomy at L5-S1. Continue with analgesics as needed as well as physical therapy 2. Hypertension. Continue antihypertensives and adjust as needed 3. Gastroesophageal reflux disease. Continue PPI . 4. Hypothyroidism. Continue levothyroxine. 5. Leukocytosis. Likely steroid-induced. Continue antibiotics per surgeon recommendations. DVT prophylaxis: SCDs Disposition and plan: Appears overall stable. Discharge planning Discussed plan of care with Dr. Reid Problems: Subjective 24 Hr Interval Summary Free Text/Dictation Comfortable at present. No apparent distress Exam/Review of Systems Vital Signs Vitals Vital Signs Date Time Temp Pulse Resp B/P Pulse Ox O2 Delivery O2 Flow Rate FiO2 10/24/16 08:13 99.2 76 18 145/65 93 10/22/16 00:32 Nasal Cannula 2.0 Intake and Output 10/23/16 10/23/16 10/24/16 14:59 22:59 06:59 Intake Total 850 ml 580 ml Output Total 950 ml Balance -100 ml 580 ml Exam General: No acute signs or symptoms of distress Eyes: pupils equal round, Anicteric sclera Neck: Supple nontender, no JVD Cardiac: S1, S2 auscultated, regular rhythm and rate Pulmonary: No coarse rhonchi or breathing auscultated GI: Abdomen soft nontender nondistended, bowel sounds active Extremities: No edema bilateral lower extremities Skin: Clean dry and intact Neurologic: Alert to person place and time and situation Results Result Diagram: 10/23/16 0441 10/23/16 0516 Medications Medications Current Medications Potassium Chloride/Dextrose/ Sod Cl (D5-1/2ns + KCl 20 Meq) 1,000 ml @ 100 mls/ hr Q10H IV Last administered on 10/22/16t 06:05; Admin Dose 100 MLS/HR; Start 10/21/16 at 10:07 Acetaminophen/ Hydrocodone Bitart ([place] (5/325)) 1 tab Q4H PRN PO PAIN LEVEL 1 -5 Last administered on 10/24/16 01:06; Admin Dose 1 TAB; Start 10/22/16 at 10: 30 Acetaminophen/ Hydrocodone Bitart ([place] (5/325)) 2 tab Q4H PRN PO PAIN LEVEL 6 -10 Last administered on 10/24/16 15:24; Admin Dose 2 TAB; Start 10/22/16 at 10 :30 Hydromorphone HCl (Dilaudid) 0.2 mg Q3H PRN IV BREAKTHROUGH PAIN; Start at 10:30 Ondansetron HCl (Zofran Inj) 4 mg Q6H PRN IV NAUSEA AND/OR VOMITING Last administered on 10/21/16 21:12; Admin Dose 4 MG; Start 10/21/16 at 10:30 Prochlorperazine (Compazine Inj) 10 mg Q6H PRN IV NAUSEA AND/OR VOMITING; Start 10/21/16 at 10:30 Docusate Sodium (Colace) 100 mg BID PO Last administered on 10/24/16 09:09; Admin Dose 100 MG; Start 10/21/16 at 21:00 Al Hydrox/Mg Hydrox/Simethicone (Mag-Al Plus) 15 ml Q6H PRN PO CONSTIPATION/ DYSPEPSIA; Start 10/21/16 at 10:30 Acetaminophen (Tylenol Tab) 650 mg Q4H PRN PO ROSAS OR TEMP GREATER THAN 101.3F; Start 10/21/16 at 10:30 Cyclobenzaprine HCl (Flexeril) 5 mg TID PRN PO MUSCLE SPASMS; Start 10/21/16 at 10:30 Phenol (Cepastat Lozenge) 1 lozenge PRN PRN MT SORE THROAT; Start 10/21/16 at 10:30 Diphenhydramine HCl (Benadryl) 25 mg Q6H PRN PO ITCHING; Start 10/21/16 at 10: 30 Diphenhydramine HCl (Benadryl) 25 mg Q6H PRN IV ITCHING; Start 10/21/16 at 10: 30 Naloxone HCl (Narcan) 0.2 mg Q2M PRN IV RR 8 BREATHS/MIN OR LESS; Start 1/27/ 17 at 10:30 Hydromorphone HCl (Dilaudid PORCELAIN TURNER) PORCELAIN TURNER to be started in PACU Q4PCA IV Last administered on 10/21/16 15:03; Admin Dose 6 MG; Start 10/21/16 at 10:30 Miscellaneous Information 1. Hold PORCELAIN TURNER at 1,000... PORCELAIN TURNER IV ; Start 10/21/16 at 10: 30 Lisinopril (Zestril) 40 mg DAILY PO Last administered on 10/24/16 09:10; Admin Dose 40 MG; Start 10/22/16 at 09:00 Tramadol HCl (Ultram) 50 mg BID PRN PO PAIN Last administered on 10/24/16 09: 13; Admin Dose 50 MG; Start 10/21/16 at 17:00 Hydralazine HCl (Apresoline) 10 mg Q6H PRN IV HIGH BP Last administered on 10/21 20:14; Admin Dose 10 MG; Start 10/21/16 at 18:30 Pantoprazole 40 mg 40 mg DAILY@06 PO Last administered on 10/24/16 06:15; Admin Dose 40 MG; Start 10/23/16 at 06:00 Ceftriaxone Sodium (Rocephin) 50 ml @ 100 mls/hr Q24H IVPB Last administered on 10/24/16 09:13; Admin Dose 100 MLS/HR; Start 10/23/16 at 10:30 CLAIRE LINO Oct 24, 2016 15:57
== END 2016-10-24 16:45 | disposition home or self-care (01) | DRG 460 ==
LOC: REC 10-21 08:11 → MS1 10-21 16:05
PROVIDERS: ADMIT Orthopaedic Surgery Orthopaedic Surgery of the Spine; ATTEND Orthopaedic Surgery Orthopaedic Surgery of the Spine
PROC: 07DR3ZZ Extraction of Iliac Bone Marrow, Percutaneous Approach (ICD-10-PCS; 2016-10-21)
PROC: 4A11X4G Monitoring of Peripheral Nervous Electrical Activity, Intraoperative, External Approach (ICD-10-PCS; 2016-10-21)
PROC: 0SG30A1 (ICD-10-PCS; principal; 2016-10-21 10:00)
DX: M43.17 Spondylolisthesis, lumbosacral region (principal); I10 Essential (primary) hypertension; M48.07 Spinal stenosis, lumbosacral region; M54.17 Radiculopathy, lumbosacral region; E03.9 Hypothyroidism, unspecified; K21.9 Gastro-esophageal reflux disease without esophagitis; R50.9 Fever, unspecified
CPT/HCPCS: 72110; 80048; 83735; 85025; 86850; 86900; 86901; 86920; 86999; 90686; 97116; 97163; 97167; 97530; C1713; C9113; J0360; J0690; J0696; J1170; J1644; J2250; J2405; J3010; J3480; L0639; Q9967; V2790

== ENCOUNTER 2017-10-09 22:55 | Emergency (ER) | END 2017-10-10 06:50 | disposition home or self-care (01) ==

== ENCOUNTER 2017-11-08 05:45 | Day surgery (SDC) | END 2017-11-08 10:19 | disposition home or self-care (01) ==

== ENCOUNTER 2018-01-31 15:55 | Emergency (ER) | END 2018-01-31 19:41 | disposition home or self-care (01) ==

== ENCOUNTER → 2018-05-27 | Emergency (ER) | END | disposition home or self-care (01) ==

== ENCOUNTER 2018-10-06 15:27 | Emergency (ER) | payer MEDICARE, OTHER ==
[~2018-10-06] VITALS: Ht 160 cm; Wt 88.1 kg
[~2018-10-06 15:27] MED LIST changes: -ASPI-664 PO; +ASPI81TA52 PO; +CEPH-443 PO; +ERGO2000 PO; -ESOM40CA PO; +LEVO150T64 PO; -LISI20TA11 PO; -LISI40TA9 PO; +LOSA1TAB28 PO; +MELO15TA30 PO; -MELO7.5O PO; +PANT40TA3 PO; +SENN-99 PO; +SUCR1TAB56 PO; -TRAM50TA2 PO
[2018-10-06 15:47] VITALS: Ht 160 cm; Wt 88.1 kg
[2018-10-06] MEDS ORDERED: LOSA100T15 PO (16:31)
--- NOTE | 2018-10-06 18:14 | ERD ---
ER Documentation Chief Complaint Chief Complaint PT BIB RA WITH C/O CP SINCE LAST NIGHT.NITRO AND 162 ASA HPI 63-year-old female with a history of hypertension presenting by ambulance with complaints of chest pressure that started last night. She states that when her blood pressure goes high, she starts getting some chest pressure with nausea and abdominal bloating. She does not have any associated shortness of breath, dizziness, vomiting, fever, or chills. She also complains of dysuria. She was seen by a nurses superintendent about 2 days ago, Dr. Ferrer, and he told her that her echo and EKG appeared normal. Given her uncontrolled hypertension, he recommended starting a new medication which the patient has not filled yet. He plans on doing a stress test 15 days after she has been on the medication. However she denies any cardiac history or history of strokes. She has been taking her losartan and amlodipine daily. She did take some blood pressure medication prior to arrival today. She was given nitro and aspirin in route. Currently she states she feels some chest pressure, but much better ROS All systems reviewed and are negative except as per history of present illness. Medications Home Meds Active Scripts Cephalexin* (Keflex*) 500 Mg Capsule, 500 MG PO BID for 7 Days, CAP Prov:RANDY PARRA MD 10/06/18 Reported Medications Losartan Potassium* (Losartan Potassium*) 100 Mg Tablet, 100 MG PO DAILY, TAB 10/06/18 Sucralfate* (Carafate*) 1 Gm Tab, 1 GM PO AC MEALS AND BEDTIME, TAB 05/27/18 Pantoprazole* (Protonix*) 40 Mg Tablet.dr, 40 MG PO DAILY, TAB 05/27/18 Sennosides (Jenna-Cher) 8.6 Mg Tablet, 8.6 MG PO DAILY, TAB 05/27/18 Amlodipine Besylate* (Amlodipine Besylate*) 10 Mg Tablet, 10 MG PO QHS, #30 TAB NEEDED 05/27/18 Meloxicam* (Mobic*) 15 Mg Tablet, 15 MG PO NEEDED, #30 TAB 05/27/18 Levothyroxine Sodium* (Levoxyl*) 150 Mcg Tablet, 150 MCG PO BEFORE BREAKFAST, #30 TAB 05/27/18 Aspirin (Low Dose Aspirin) 81 Mg Tablet.dr, 81 MG PO Q7D, #30 TAB 9/2/18 Discontinued Reported Medications Ergocalciferol (Vitamin D2) (VITAMIN D2) 2,000 Unit Tablet, 2000 UNIT PO DAILY, TAB 05/27/18 Losartan-Hydrochlorothiazide (Losartan-HCTZ) 100-12.5 Mg Tab, 1 TAB PO DAILY, TAB 05/27/18 Discontinued Scripts Cephalexin* (Keflex*) 500 Mg Capsule, 500 MG PO QID for 10 Days, #40 CAP Prov:RAMEZ RODRIGUEZ MD 05/27/18 Allergies Allergies: Coded Allergies: No Known Drug Allergies (Verified Allergy, Unknown, 10/06/18) PMhx/Soc History of Surgery: Yes (CHOLECYSTECTOMY, SPINE SURGERY, THYROID GOITER REMOVAL) Anesthesia Reaction: No Hx Neurological Disorder: No Hx Respiratory Disorders: No Hx Cardiac Disorders: Yes (HTN) Hx Psychiatric Problems: No Hx Miscellaneous Medical Probl: Yes (DM) Hx Alcohol Use: No Hx Substance Use: No Hx Tobacco Use: No Smoking Status: Never smoker FmHx Family History: No diabetes, No coronary disease Physical Exam Vitals Vital Signs Date Temp Pulse Resp B/P (MAP) Pulse Ox O2 O2 Flow FiO2 Time Delivery Rate 10/06/18 98.0 73 17 140/65 96 Room Air 20:07 (90) 10/06/18 98.3 64 16 136/64 96 Room Air 18:30 (88) 10/06/18 98.4 71 16 149/59 96 Room Air 17:18 (89) 10/06/18 98.9 86 14 145/75 95 15:47 (98) 10/06/18 98.4 85 18 145/75 95 15:45 (98) Physical Exam const: No acute distress Head: Atraumatic Eyes: Normal Conjunctiva ENT: Normal External Ears, Nose and Mouth. Neck: Full range of motion. No meningismus. Resp: Clear to auscultation bilaterally Cardio: Regular rate and rhythm, no murmurs. 2+ distal pulses in all 4 extremities Abd: Soft, non tender, non distended. Normal bowel sounds Skin: No petechiae or rashes Back: No midline or flank tenderness Ext: No cyanosis, or edema Neur: Awake and alert, Oriented x3, normal speech, cranial nerves intact, stre ngth and sensations intact in all 4 extremities Psych: Normal Mood and Affect Result Diagram: 10/06/18 1602 10/06/18 1602 Results 24 hrs Laboratory Tests Test 10/06/18 16:02 10/06/18 18:37 10/06/18 18:40 White Blood Count 6.6 10^3/ul Red Blood Count 4.95 10^6/ul Hemoglobin 14.1 g/dl Hematocrit 41.7 % Mean Corpuscular Volume 84.2 fl Mean Corpuscular Hemoglobin 28.5 pg Mean Corpuscular 33.8 g/dl Hemoglobin Concent Red Cell Distribution Width 14.0 % Platelet Count 194 10^3/UL Mean Platelet Volume 10.6 fl Immature Granulocytes % 0.200 % Neutrophils % 75.9 % Lymphocytes % 17.2 % Monocytes % 4.8 % Eosinophils % 1.4 % Basophils % 0.5 % Nucleated Red Blood Cells % 0.0 /100WBC Immature Granulocytes # 0.010 10^3/ul Neutrophils # 5.0 10^3/ul Lymphocytes # 1.1 10^3/ul Monocytes # 0.3 10^3/ul Eosinophils # 0.1 10^3/ul Basophils # 0.0 10^3/ul Nucleated Red Blood Cells # 0.0 10^3/ul Sodium Level 139 mmol/L Potassium Level 3.8 mmol/L Chloride Level 105 mmol/L Carbon Dioxide Level 25 mmol/L Anion Gap 9 Blood Urea Nitrogen 16 mg/dl Creatinine 0.43 mg/dl Est Glomerular Filtrat > 60 mL/min Rate mL/min Glucose Level 115 mg/dl Calcium Level 9.5 mg/dl Troponin I < 0.012 ng/ml < 0.012 ng/ml Bedside Urine pH (LAB) 6.0 Bedside Urine Protein (LAB) 1+ Bedside Urine Glucose (UA) Negative Bedside Urine Ketones (LAB) Negative Bedside Urine Blood Negative Bedside Urine Nitrite (LAB) Positive Bedside Urine Leukocyte Esterase Trace (L Urine Color YELLOW Urine Clarity CLOUDY Urine pH 5.0 Urine Specific [place] 1.018 Urine Ketones NEGATIVE mg/dL Urine Nitrite POSITIVE mg/dL Urine Bilirubin NEGATIVE mg/dL Urine Urobilinogen NEGATIVE mg/dL Urine Leukocyte Esterase TRACE Mary Beth/ul Urine Microscopic RBC 1 /HPF Urine Microscopic WBC 10 /HPF Urine Bacteria MANY /HPF Urine Mucus FEW /HPF Urine Hemoglobin NEGATIVE mg/dL Urine Glucose NEGATIVE mg/dL Urine Total Protein 1+ mg/dl Current Medications Medications Dose Sig/Mita Start Time Status Last (Trade) Ordered Route PRN Stop Time Admin Dose Reason Admin Cephalexin 500 mg ONCE ONCE 10/06/18 DC 10/06/18 (Keflex) PO 19:00 19:04 10/06/18 19:01 Procedures/MDM EMERGENT LABS AND DIAGNOSTIC STUDIES: Lab Results above were reviewed and interpreted by me. CBC: no anemia or evidence of infection BMP: No evidence of electrolyte abnormality, renal failure, acidosis, alkalosis, hypoglycemia sinus rhythm with first-degree AV block at 78 bpm Troponin within normal limits, not indicative of myocardial ischemia Repeat troponin within normal limits, no indication of myocardial ischemia UA: Consistent with infection 12-lead EKG #1 was interpreted by Telma Parra MD: Sinus rhythm with first-degree AV block at 78 bpm Normal axis Normal intervals No acute ST or T wave changes suggestive of acute ischemia or STEMI. 12-lead EKG #2 was interpreted by Telma Parra MD: Sinus rhythm with first-degree AV block at 68 bpm Normal axis Normal intervals No acute ST or T wave changes suggestive of acute ischemia or STEMI. Radiology Results as interpreted by Radiology below were reviewed by Ramesh Parra MD: Chest x-ray shows no acute abnormalities Initial Nursing notes reviewed. Previous Medical Records requested via the Electronic Health Record. EMERGENCY DEPARTMENT COURSE / MEDICAL DECISION MAKING: The patient presents with chest pain. Vitals are stable. I considered pulmonary embolism, aortic dissection, pneumothorax among other diagnoses for which I have other than slightly elevated blood pressure a lower suspicion. Evaluation for acute coronary syndrome was performed. The HEART score was utilized for risk stratification and found to be 3. Repeat EKG and troponin were unchanged. Based on this evaluation the patient's risk of major adverse cardiac events is <1%. Shared decision making occurred with patient and the decision has been made to discharge the patient for outpatient evaluation and functional study within 72 hours. I advised her to call her nurses superintendent's office first thing on Monday. She was noted to have UTI so treatment with Keflex was started and she will be given prescription for Keflex as well. Patient instructed to arrange follow up with PCP in the next 2 days and return to the ED for any new or worsening symptoms. Upon discharge, her blood pressure had normalized without intervention. Patient's blood pressure was elevated (>120/80) but appears stable without evidence of hypertensive emergency or urgency. The patient was counseled about the risks of hypertension and urged to pursue outpatient monitoring and therapy within a week with their primary care physician. Departure Diagnosis: Primary Impression: Chest pain Chest pain type: other chest pain Qualified Codes: R07.89 - Other chest pain Additional Impressions: UTI (urinary tract infection) Urinary tract infection type: acute cystitis Hematuria presence: without hematuria Qualified Codes: N30.00 - Acute cystitis without hematuria Hypertension, uncontrolled Condition: Stable RANDY PARRA MD Oct 06, 2018 18:05
[2018-10-06] MEDS ORDERED: CEPHALEXIN 500 MG CAP PO ONE (19:00)
[2018-10-06] MEDS ORDERED: CEPH-443 PO (19:53)
[2018-10-06 20:07] VITALS: BP 140/65; PULSE 73; RESP 17
== END 2018-10-06 20:08 | disposition home or self-care (01) ==
LOC: E/R 15:27
DX: R07.89 Other chest pain (principal); I10 Essential (primary) hypertension; E11.9 Type 2 diabetes mellitus without complications; N30.00 Acute cystitis without hematuria; Z79.82 Long term (current) use of aspirin
CPT/HCPCS: 36415; 71045; 80048; 81001; 84484; 85025; Z7502; Z7610; 81003; 93005

== ENCOUNTER 2019-01-20 11:17 | Emergency (ER) | payer MEDICARE, OTHER ==
[~2019-01-20] VITALS: Ht 167.6 cm; Wt 88.6 kg
[~2019-01-20 11:17] MED LIST changes: -ERGO2000 PO; +LOSA100T15 PO; -LOSA1TAB28 PO
[2019-01-20 11:22] VITALS: Ht 167.6 cm; Wt 88.6 kg
[2019-01-20] MEDS ORDERED: LIDOCAINE/MYLANTA 40 ML BTL PO STA (11:53)
[2019-01-20] MEDS ORDERED: SOD CHLORIDE 0.9% 500 ML IV STA (11:53)
[2019-01-20] MEDS ORDERED: KETOROLAC 15 MG INJ IV STA (11:53)
[2019-01-20] MEDS ORDERED: BELLADONNA/PHENOBARBITAL TAB PO STA (11:53)
[2019-01-20] MEDS ORDERED: ONDANSETRON 4 MG INJ IV STA (11:53)
[2019-01-20] MEDS ORDERED: FAMOTIDINE 20 MG TAB PO STA (11:53)
--- NOTE | 2019-01-20 12:18 | ERD ---
ER Documentation Chief Complaint Chief Complaint ap with nausea starting last night, htn HPI 63-year-old woman with history of obesity and hypertension presents with sharp burning epigastric abdominal pain radiating to the back with nausea and hypertension beginning last night. She states the pain and nausea caused an elevation in blood pressure despite her using her medications as prescribed. She denies vomiting, no chest pain, no shortness of breath, no blood per rectum or melena. She did undergo endoscopy about 4 years ago that revealed gastritis and she had a biliary stent placed about 2 years ago. Patient denies weight loss, no blood per rectum or melena, no complaints of chest pain or shortness of breath. She has continued nausea and called 911 this afternoon and was transported here by EMS without further complications ROS All systems reviewed and are negative except as per history of present illness. Medications Home Meds Active Scripts Esomeprazole Mag Trihydrate (Nexium) 40 Mg Capsule.dr, 40 MG PO DAILY, #30 CAP Prov:RAMEZ COLLINS MD 01/20/19 Mag Hydrox/Al Hydrox/Simeth (Maalox Advanced Suspension) 355 Ml Oral.susp, 2 TSP PO TID PRN for PAIN AND/OR INFLAMMATION, #20 OZ Prov:RAMEZ COLLINS MD 01/20/19 Ondansetron (Ondansetron Odt) 4 Mg Tab.rapdis, 4 MG PO Q6H PRN for NAUSEA AND/OR VOMITING, #15 TAB Prov:RAMEZ COLLINS MD 01/20/19 Cephalexin* (Keflex*) 500 Mg Capsule, 500 MG PO BID for 7 Days, CAP Prov:RANDY PARRA MD 10/06/18 Reported Medications Losartan Potassium* (Losartan Potassium*) 100 Mg Tablet, 100 MG PO DAILY, TAB 10/06/18 Sucralfate* (Carafate*) 1 Gm Tab, 1 GM PO AC MEALS AND BEDTIME, TAB 05/27/18 Pantoprazole* (Protonix*) 40 Mg Tablet.dr, 40 MG PO DAILY, TAB 05/27/18 Sennosides (Jenna-Cher) 8.6 Mg Tablet, 8.6 MG PO DAILY, TAB 05/27/18 Amlodipine Besylate* (Amlodipine Besylate*) 10 Mg Tablet, 10 MG PO QHS, #30 TAB NEEDED 05/27/18 Meloxicam* (Mobic*) 15 Mg Tablet, 15 MG PO NEEDED, #30 TAB 05/27/18 Levothyroxine Sodium* (Levoxyl*) 150 Mcg Tablet, 150 MCG PO BEFORE BREAKFAST, #30 TAB 05/27/18 Aspirin (Low Dose Aspirin) 81 Mg Tablet.dr, 81 MG PO Q7D, #30 TAB 05/27/18 Allergies Allergies: Coded Allergies: No Known Drug Allergies (Verified Allergy, Unknown, 01/20/19) PMhx/Soc Obesity, hypertension, biliary stent, anxiety, gastritis History of Surgery: Yes (CHOLECYSTECTOMY, SPINE SURGERY, THYROID GOITER REMOVAL) Anesthesia Reaction: No Hx Neurological Disorder: No Hx Respiratory Disorders: No Hx Cardiac Disorders: Yes (HTN) Hx Psychiatric Problems: No Hx Miscellaneous Medical Probl: Yes (DM) Hx Alcohol Use: No Hx Substance Use: No Hx Tobacco Use: No Smoking Status: Never smoker FmHx Family History: No diabetes Physical Exam Vitals Vital Signs Date Temp Pulse Resp B/P (MAP) Pulse Ox O2 O2 Flow FiO2 Time Delivery Rate 01/20/19 64 17 191/86 97 Room Air 12:30 (121) 01/20/19 97.2 67 16 222/98 96 11:22 (139) Physical Exam GENERAL: Well-developed, well-nourished, well-hydrated, in no apparent distress, looks nontoxic in appearance CARDIAC: Regular rate and rhythm, no murmurs rubs or gallops LUNGS: Clear bilaterally no wheezing crackles or stridor ABDOMEN: Soft nontender, no guarding, no rigidity, no rebound, no psoas sign no obturator sign. Normoactive bowel sounds SKIN: Warm and dry to touch, no abrasions, contusions, or hematomas, no lacerations, no ecchymosis, no target lesions, and without ulcers EXTREMITIES: No clubbing cyanosis or edema, calves are bilaterally symmetrical, no Homans sign, no popliteal cord sign. Distal pulses equal and bilateral PSYCH: Normal affect without agitation or irritability Result Diagram: 01/20/19 1205 01/20/19 1205 Results 24 hrs Laboratory Tests Test 01/20/19 12:05 White Blood Count 5.6 10^3/ul Red Blood Count 4.93 10^6/ul Hemoglobin 14.1 g/dl Hematocrit 42.5 % Mean Corpuscular Volume 86.2 fl Mean Corpuscular Hemoglobin 28.6 pg Mean Corpuscular Hemoglobin Concent 33.2 g/dl Red Cell Distribution Width 13.6 % Platelet Count 200 10^3/UL Mean Platelet Volume 11.0 fl Immature Granulocytes % 0.200 % Neutrophils % 49.6 % Lymphocytes % 39.7 % Monocytes % 7.7 % Eosinophils % 2.1 % Basophils % 0.7 % Nucleated Red Blood Cells % 0.0 /100WBC Immature Granulocytes # 0.010 10^3/ul Neutrophils # 2.8 10^3/ul Lymphocytes # 2.2 10^3/ul Monocytes # 0.4 10^3/ul Eosinophils # 0.1 10^3/ul Basophils # 0.0 10^3/ul Nucleated Red Blood Cells # 0.0 10^3/ul Urine Color COLORLESS Urine Clarity CLEAR Urine pH 7.0 Urine Specific [place] 1.004 Urine Ketones NEGATIVE mg/dL Urine Nitrite NEGATIVE mg/dL Urine Bilirubin NEGATIVE mg/dL Urine Urobilinogen NEGATIVE mg/dL Urine Leukocyte Esterase NEGATIVE Mary Beth/ul Urine Microscopic RBC 0 /HPF Urine Microscopic WBC 1 /HPF Urine Hemoglobin NEGATIVE mg/dL Urine Glucose NEGATIVE mg/dL Urine Total Protein 1+ mg/dl Sodium Level 147 mmol/L Potassium Level 4.2 mmol/L Chloride Level 106 mmol/L Carbon Dioxide Level 31 mmol/L Anion Gap 10 Blood Urea Nitrogen 11 mg/dl Creatinine 0.51 mg/dl Est Glomerular Filtrat Rate mL/min > 60 mL/min Glucose Level 107 mg/dl Calcium Level 10.1 mg/dl Total Bilirubin 0.6 mg/dl Direct Bilirubin 0.00 mg/dl Indirect Bilirubin 0.6 mg/dl Aspartate Amino Transf (AST/SGOT) 58 IU/L Alanine Aminotransferase (ALT/SGPT) 79 IU/L Alkaline Phosphatase 83 IU/L Troponin I < 0.012 ng/ml Total Protein 8.6 g/dl Albumin 4.7 g/dl Globulin 3.90 g/dl Albumin/Globulin Ratio 1.20 Lipase 76 U/L Current Medications Medications Dose Sig/Mita Start Time Status Last (Trade) Ordered Route PRN Stop Time Admin Dose Reason Admin Sodium 500 ml @ Q1H STAT 01/20/19 DC 01/20/19 Chloride 500 mls/hr IV 11:53 12:26 01/20/19 12:52 Ondansetron 4 mg ONCE STAT 01/20/19 DC 01/20/19 HCl (Zofran IV 11:53 12:26 Inj) 01/20/19 11:54 Famotidine 20 mg ONCE STAT 01/20/19 DC 01/20/19 (Pepcid) PO 11:53 12:25 01/20/19 11:54 40 ml ONCE STAT 01/20/19 DC 01/20/19 Miscellaneous PO 11:53 12:26 Medication 01/20/19 11:54 (Gi Cocktail (2)) Belladonna/ 2 tab ONCE STAT 01/20/19 DC 01/20/19 Phenobarbital PO 11:53 12:25 () 01/20/19 11:54 Ketorolac 15 mg ONCE STAT 01/20/19 DC 01/20/19 Tromethamine IV 11:53 12:26 (Toradol) 01/20/19 11:55 Clonidine 0.1 mg ONCE ONCE 01/20/19 DC 01/20/19 (Catapres) PO 12:00 12:25 01/20/19 12:01 Procedures/MDM IV line was established patient was placed on monitor and storage bin tender rhythm strip revealed a sinus rhythm at about 60 bpm with upright P and T waves. Patient was afebrile EKG performed, read by me revealed a normal sinus rhythm at 60 bpm, normal axis, first-degree AV block, narrow QRS complex, no concerning ST elevations or depressions noted One AP view of the chest performed, read by me reveals no acute infiltrates, normal mediastinum, sharp costophrenic and cardiac borders, no air under the diaphragm. Otherwise unremarkable chest x-ray. CBC and electrolytes were normal, liver function tests normal, troponin negative, urinalysis I administered 1 L normal saline IV, Zofran 4 mg IV, Toradol 15 mg IV, GI cocktail, famotidine p.o. She was initially hypertensive and administered clonidine 0.1 mg p.o. x1. Differential diagnoses considered, included but not limited to acute coronary syndrome, pulmonary embolism, aortic dissection, abdominal aortic aneurysm, sepsis, stroke, meningitis, encephalitis, pneumonia, appendicitis, cholecystitis, bowel obstruction, pyelonephritis, nephrolithiasis, cystitis, as well as metabolic, hematologic, and electrolyte abnormalities. As well as abscess, cellulitis, fractures, and dislocations. Patient feels much better at this time, and vital signs are normal, symptoms have improved. I did give strict instructions to return to the ED if symptoms continue or worsen, patient will otherwise follow-up with primary care physician. Patient understood instructions and agreed to plan. Disclaimer: Inadvertent spelling and grammatical errors are likely due to EHR/dictation software use and do not reflect on the overall quality of patient care. Also, please note that the electronic time recorded on this note does not necessarily reflect the actual time of the patient encounter. Departure Diagnosis: Primary Impression: Abdominal pain Abdominal location: epigastric Qualified Codes: R10.13 - Epigastric pain Additional Impressions: Gastritis Gastritis type: unspecified gastritis Chronicity: acute Gastritis bleeding: without bleeding Qualified Codes: K29.00 - Acute gastritis without bleeding Nausea Hypertension Hypertension type: essential hypertension Qualified Codes: I10 - Essential (primary) hypertension Condition: RAMEZ Vann MD Jan 20, 2019 12:17
[2019-01-20] MEDS ORDERED: ONDA4TAB14 PO (13:07)
[2019-01-20] MEDS ORDERED: ESOM40CA PO (13:07)
[2019-01-20] MEDS ORDERED: MAG355OR14 PO (13:07)
[2019-01-20 13:20] VITALS: BP 162/92; PULSE 65; RESP 18
== END 2019-01-20 13:27 | disposition home or self-care (01) ==
LOC: E/R 11:17
DX: K29.00 Acute gastritis without bleeding (principal); I10 Essential (primary) hypertension; E11.9 Type 2 diabetes mellitus without complications; E66.9 Obesity, unspecified; Z68.31 Body mass index [BMI] 31.0-31.9, adult; Z79.82 Long term (current) use of aspirin
CPT/HCPCS: 71045; 80053; 81001; 83690; 84484; 85025; 93005; 96361; 96374; 96375; 99285; J1885; J2405; J7040